=== PATIENT | male | born 1980 | race Hispanic/Latino ===

== ENCOUNTER 2017-08-20 07:50 | Emergency (ER) | payer OTHER ==
--- NOTE | 2017-08-20 08:12 | ED PDOC ---
HPI: General Adult Time Seen by Provider: 08/20/17 07:57 History Per: Patient Onset/Duration Of Symptoms: Days (2) Current Symptoms Are (Timing): Still Present Severity: Moderate Pain Scale Rating Of: 1 Additional Complaint(s): Swelling lower lip since Saturday. No fever. No rash. No SOB. No tightness in throat. Past Medical History - Medical History PMH: Asthma - Family History Family History: States: Unknown Family Hx - Home Medications Home Medications: Ambulatory Orders Medication Instructions Recorded Clindamycin [Cleocin] 300 mg PO TID #30 cap 08/20/17 Valacyclovir HCl [Valtrex] 1 gm PO Q8 #30 tablet 08/20/17 traMADol [Ultram] 50 mg PO Q8 #10 tab 08/20/17 - Allergies Allergies/Adverse Reactions: Allergies Allergy/AdvReac Type Severity Reaction Status Date / Time naproxen [From Naprosyn] AdvReac Verified 08/20/17 08:09 Review of Systems Constitutional: Negative for: Fever ENT: Positive for: Mouth Pain, Mouth Swelling. Negative for: Throat Swelling Respiratory: Negative for: Shortness of Breath, Wheezing Skin: Negative for: Rash Physical Exam - Physical Exam Appears: Positive for: Non-toxic, No Acute Distress Skin: Positive for: Normal Color, Warm. Negative for: Rash ENT: Positive for: Other (Mouth, lower lip swelling and induration. No fluctuance. No drainage. No submandibular swelling or tenderness. No trismus or stridor.). Negative for: Pharyngeal Erythema, Tonsillar Exudate, Tonsillar Swelling Disposition - Clinical Impression Clinical Impression: Infection of lip - Patient ED Disposition Is Patient to be Admitted: No - Disposition Referrals: [facility] [Outside] Mainor Melton MD [Staff Provider] - Disposition: Routine/Home Disposition Time: 08:13 Condition: FAIR Prescriptions: Clindamycin [Cleocin] 300 mg PO TID #30 cap traMADol [Ultram] 50 mg PO Q8 #10 tab Valacyclovir HCl [Valtrex] 1 gm PO Q8 #30 tablet Instructions: Cellulitis (ED)
[2017-08-20 08:17] VITALS: BP 150/92; PULSE 83; RESP 16; TEMP 99; O2SAT 97
== END 2017-08-20 09:05 | disposition home or self-care (01) ==
LOC: H.ER 07:50
DX: L03.211 Cellulitis of face (principal)

== ENCOUNTER 2017-08-22 11:45 | Inpatient (IN) | payer BC, OTHER ==
[2017-08-22] MEDS ORDERED: Piperacillin/Tazobact 3.375 GM in Sodium Chloride 0.9% 100 ML IVPB STA (12:37)
--- NOTE | 2017-08-22 12:48 | ED PDOC ---
HPI: General Adult Time Seen by Provider: 08/22/17 12:11 Chief Complaint (Nursing): Abnormal Skin Integrity History Per: Patient Additional Complaint(s): Pt. states on Saturday he "popped a pimple" on the bottom of his lower lip. On Saturday he developed swelling to the lip and was seen in [facility] ED and prescribed Clindamycin which he started the same day which has not provided any relief. This morning swelling and pain became worse. Denies fever, trauma, hx of DM. Past Medical History Reviewed: Historical Data, Nursing Documentation, Vital Signs Vital Signs: Last Vital Signs Temp 98.7 F 08/22/17 15:54 Pulse 67 08/22/17 15:54 Resp 18 08/22/17 15:54 BP 169/97 H 08/22/17 15:54 Pulse Ox 98 08/22/17 18:59 - Family History Family History: States: No Known Family Hx - Home Medications Home Medications: Ambulatory Orders Medication Instructions Recorded Valacyclovir HCl [Valtrex] 1 gm PO Q4 08/22/17 traMADol [Ultram] 50 mg PO Q6 PRN 08/22/17 - Allergies Allergies/Adverse Reactions: Allergies Allergy/AdvReac Type Severity Reaction Status Date / Time naproxen [From Naprosyn] AdvReac Verified 08/20/17 08:09 Review of Systems ROS Statement: Except As Marked, All Systems Reviewed And Found Negative Physical Exam - Physical Exam Appears: Positive for: Well, Non-toxic, No Acute Distress Skin: Positive for: Normal Color, Warm. Negative for: Rash Eye Exam: Positive for: Normal appearance ENT: Positive for: Other (large swelling noted to entire lower lip greatest on R side with fluctuance ) Neck: Positive for: Normal, Painless ROM Cardiovascular/Chest: Positive for: Regular Rate, Rhythm Respiratory: Positive for: CNT, Normal Breath Sounds Gastrointestinal/Abdominal: Positive for: Normal Exam, Soft. Negative for: Tenderness Extremity: Positive for: Normal ROM Neurologic/Psych: Positive for: Alert, Oriented - Laboratory Results Result Diagrams: 08/22/17 13:54 08/22/17 13:54 - ECG O2 Sat by Pulse Oximetry: 98 - Progress ED Course And Treament: Labs ordered. Zosyn IV, Vancomycin IV ordered. Blood culture x 2 ordered. Pt. evaluated by Dr. Berger in ED. Case d/w Dr. Cristina, plastic surgeon, who see patient in hospital. Arrangements made for [address] Diaz. Disposition - Clinical Impression Clinical Impression: Abscess of lip - Patient ED Disposition Is Patient to be Admitted: Yes - Disposition Disposition Time: 12:44 Condition: STABLE
[2017-08-22] MEDS ORDERED: Piperacillin/Tazobact 3.375 gm Inj IVPB ONE (12:59)
[2017-08-22 13:27] LABS: VENOUS BLOOD GAS BASE EXCESS 5.9 mmol/L (0.0-2.0); VENOUS BLOOD GAS PCO2 54 mmHg (40-60); VENOUS BLOOD GAS PO2 19 mm/Hg (30-55); VENOUS BLOOD PH 7.39 (7.32-7.43)
[2017-08-22 14:10] LABS: BASO # 0.1 K/uL (0.0-0.2); BASO % 0.6 % (0.0-2.0); EOS # 0.2 K/uL (0.0-0.7); EOS % 1.3 % (0.0-4.0); HEMOGLOBIN 14.5 g/dL (12.0-18.0); LYMPH # 3.2 K/uL (1.0-4.3); LYMPH % 18.8 % (20.0-40.0); MEAN CELL VOLUME 80.8 fl (80.0-94.0); MEAN CORPUSCULAR HEMOGLOBIN 26.5 pg (27.0-31.0); MEAN CORPUSCULAR HGB CONC 32.9 g/dL (33.0-37.0); MEAN PLATELET VOLUME 9.6 fl (7.2-11.7); MONO # 1.1 K/uL (0.0-0.8); MONO % 6.5 % (0.0-10.0); NEUT # 12.3 K/uL (1.8-7.0); NEUT % 72.8 % (50.0-75.0); RBC 5.47 Mil/uL (4.40-5.90); RED CELL DISTRIBUTION WIDTH 13.8 % (11.5-14.5); WHITE BLOOD COUNT 16.9 K/uL (4.8-10.8)
[2017-08-22 14:18] LABS: ALBUMIN 4.4 g/dL (3.5-5.0); ALT/SGPT 254 U/L (21-72); AST/SGOT 147 U/L (17-59); BLOOD UREA NITROGEN 6 mg/dl (9-20); CALCIUM 9.1 mg/dL (8.4-10.2); GFR AFRICAN-AMERICAN > 60; GFR NON-AFRICAN AMERICAN > 60
[2017-08-22 14:22] LABS: ALB/GLOB RATIO 1.1 (1.0-2.1)
[2017-08-22] MEDS ORDERED: Oxycodone/Acetaminophen 5/325 mg Tab PO PRN (16:50)
[2017-08-22] MEDS ORDERED: VALACYCLOVIR HCL 1 GM PO SCH (21:00)
[2017-08-22] MEDS: Piperacillin/Tazobact 3.375 GM in Sodium Chloride 0.9% 100 ML IVPB SCH (21:07)
[2017-08-22] MEDS: Vitamins A & D Oint UD Foilpak TOP PRN (21:12)
[2017-08-23] MEDS: Piperacillin/Tazobact 3.375 GM in Sodium Chloride 0.9% 100 ML IVPB SCH ×4 (04:11→22:50)
[2017-08-23 06:34] LABS: HEMOGLOBIN 14.4 g/dL (12.0-18.0); MEAN CELL VOLUME 81.2 fl (80.0-94.0); MEAN CORPUSCULAR HEMOGLOBIN 26.5 pg (27.0-31.0); MEAN CORPUSCULAR HGB CONC 32.6 g/dL (33.0-37.0); RBC 5.44 Mil/uL (4.40-5.90); RED CELL DISTRIBUTION WIDTH 13.8 % (11.5-14.5); WHITE BLOOD COUNT 14.3 K/uL (4.8-10.8)
[2017-08-23 07:23] LABS: ALB/GLOB RATIO 1.1 (1.0-2.1); ALBUMIN 4.2 g/dL (3.5-5.0); ALT/SGPT 238 U/L (21-72); AST/SGOT 119 U/L (17-59); BLOOD UREA NITROGEN 7 mg/dl (9-20); CALCIUM 9.1 mg/dL (8.4-10.2); GFR AFRICAN-AMERICAN > 60; GFR NON-AFRICAN AMERICAN > 60
--- NOTE | 2017-08-23 08:28 | CP.PCM.HP ---
<Kami Gannon - Last Filed: 08/23/17 14:40> History of Present Illness - History of Present Illness History of Present Illness: 37 yo ,m, no significant PMhx presents to ED with complaint of inferior lip abscess and swelling. Patient reports that 6 days ago he pressed a pimple over his inferior lip and 3 days after it got swollen and painful. patient came to ED and was evaluated and prescribed clindamycin but 2 days after treatment it got worse and more swollen associated with chills, subjective fever. He denies headache, dizziness, hx/o DM, hx/o skin infections in the past, trauma. Patient seen and examined bedside with Dr pedraza. Patient s/o I & D yesterday by Plastic surgery. Patient tolerating liquid diet and reports minimal pain alleviated with pain medications. PMhx: None Allergies: Naproxen. "cough" reaction Meds: None PSurgHx: none PShx: Denies ETOH,rect drugs, cig Present on Admission - Present on Admission Any Indicators Present on Admission: No History of DVT/PE: No History of Uncontrolled Diabetes: No Urinary Catheter: No Decubitus Ulcer Present: No Review of Systems - Constitutional Constitutional: As Per HPI - EENT Nose/Mouth/Throat: Lip Swelling, Mouth Lesions, Mouth Pain. absent: Facial Pain , Neck Pain - Gastrointestinal Gastrointestinal: As Per HPI - Genitourinary Genitourinary: As Per HPI - Musculoskeletal Musculoskeletal: As Per HPI Past Patient History - Past Social History Smoking Status: Never Smoked - CARDIAC Hx Cardiac Disorders: No - PULMONARY Hx Respiratory Disorders: No - NEUROLOGICAL Hx Neurological Disorder: No - HEENT Hx HEENT Problems: No - RENAL Hx Chronic Kidney Disease: No - ENDOCRINE/METABOLIC Hx Endocrine Disorders: No - HEMATOLOGICAL/ONCOLOGICAL Hx Blood Disorders: No - INTEGUMENTARY Hx Dermatological Problems: No - MUSCULOSKELETAL/RHEUMATOLOGICAL Hx Musculoskeletal Disorders: No Hx Falls: No - GENITOURINARY/GYNECOLOGICAL Hx Genitourinary Disorders: No - PSYCHIATRIC Hx Psychophysiologic Disorder: No Hx Substance Use: No - SURGICAL HISTORY Hx Surgeries: No - ANESTHESIA Hx Anesthesia: No Meds Allergies/Adverse Reactions: Allergies Allergy/AdvReac Type Severity Reaction Status Date / Time naproxen [From Naprosyn] AdvReac Verified 08/20/17 08:09 Physical Exam - Constitutional Appears: No Acute Distress - Head Exam Head Exam: ATRAUMATIC, NORMOCEPHALIC - Eye Exam Eye Exam: Normal appearance - ENT Exam ENT Exam: Mucous Membranes Moist Additional comments: inferior lip swollen, erythema, s/p I & D yesterday, horizontal scab linear 4 cm size, no active bleeding, no discharge. - Expanded ENT Exam Expanded Mouth exam: absent: drooling, muffled voice, tongue elevation, tongue hypertrophy, tongue normal, trismus Throat exam: Normal Inspection. absent: Tonsillar Erythema, Tonsillar Exudate - Neck Exam Neck exam: Positive for: Normal Inspection - Respiratory Exam Respiratory Exam: Clear to Auscultation Bilateral. absent: Rhonchi, Wheezes - Cardiovascular Exam Cardiovascular Exam: REGULAR RHYTHM, +S1, +S2 - GI/Abdominal Exam GI & Abdominal Exam: Normal Bowel Sounds, Soft. absent: Guarding, Rebound, Tenderness - Extremities Exam Extremities exam: Positive for: normal inspection. Negative for: pedal edema, tenderness - Neurological Exam Neurological exam: Alert, Oriented x3 - Psychiatric Exam Psychiatric exam: Normal Affect, Normal Mood - Skin Skin Exam: Erythema Additional comments: inferior lip Results - Vital Signs Recent Vital Signs: Last Vital Signs Temp 98.2 F 08/23/17 07:37 Pulse 81 08/23/17 07:37 Resp 20 08/23/17 07:37 BP 137/82 08/23/17 07:37 Pulse Ox 97 08/23/17 07:37 - Labs Result Diagrams: 08/23/17 06:10 08/23/17 06:10 Labs: Laboratory Results - last 24 hr 08/22/17 08/22/17 08/22/17 12:37 13:54 13:54 WBC 16.9 H RBC 5.47 Hgb 14.5 Hct 44.1 MCV 80.8 MCH 26.5 L MCHC 32.9 L RDW 13.8 Plt Count 243 MPV 9.6 Neut % (Auto) 72.8 Lymph % (Auto) 18.8 L Garland % (Auto) 6.5 Eos % (Auto) 1.3 Baso % (Auto) 0.6 Neut # 12.3 H Lymph # 3.2 Garland # 1.1 H Eos # 0.2 Baso # 0.1 pO2 19 L VBG pH 7.39 VBG pCO2 54 VBG HCO3 27.6 VBG Total CO2 34.4 H VBG O2 Sat (Calc) 37.4 L VBG Base Excess 5.9 H VBG Potassium 4.4 A-a O2 Difference 63.0 Sodium 136.0 139 Chloride 102.0 98 Glucose 103 Lactate 1.1 FiO2 21.0 Crit Value Called To Eric campoverde Crit Value Called By 15 Crit Value Read Back Y Blood Gas Notified Time 1327 Potassium 4.3 Carbon Dioxide 32 H Anion Gap 13 BUN 6 L Creatinine 0.7 L Est GFR ( Amer) > 60 Est GFR (Non-Af Amer) > 60 Random Glucose 98 Calcium 9.1 Total Bilirubin 0.8 AST 147 H ALT 254 H Alkaline Phosphatase 183 H Total Protein 8.4 H Albumin 4.4 Globulin 4.0 H Albumin/Globulin Ratio 1.1 Venous Blood Potassium 4.4 08/23/17 08/23/17 06:10 06:10 WBC 14.3 H RBC 5.44 Hgb 14.4 Hct 44.2 MCV 81.2 MCH 26.5 L MCHC 32.6 L RDW 13.8 Plt Count 238 MPV Neut % (Auto) Lymph % (Auto) Garland % (Auto) Eos % (Auto) Baso % (Auto) Neut # Lymph # Garland # Eos # Baso # pO2 VBG pH VBG pCO2 VBG HCO3 VBG Total CO2 VBG O2 Sat (Calc) VBG Base Excess VBG Potassium A-a O2 Difference Sodium 137 Chloride 98 Glucose Lactate FiO2 Crit Value Called To Crit Value Called By Crit Value Read Back Blood Gas Notified Time Potassium 4.9 Carbon Dioxide 31 H Anion Gap 13 BUN 7 L Creatinine 0.8 Est GFR ( Amer) > 60 Est GFR (Non-Af Amer) > 60 Random Glucose 108 Calcium 9.1 Total Bilirubin 1.1 AST 119 H ALT 238 H Alkaline Phosphatase 162 H Total Protein 8.2 Albumin 4.2 Globulin 4.0 H Albumin/Globulin Ratio 1.1 Venous Blood Potassium Assessment & Plan - Assessment and Plan (Free Text) Plan: Assessment/Plan 1) Abscess of lip -s/p I & D yesterday -vanco/zosyn -Plastic surgery consult.Dr. Cristina, plastic surgeon consult appreciated -ID consult suggested. 2) Transaminitis -Abd Us -Lipid profile, Hgba1c -Hepatic panel -HIV test 3) DVT Prophylaxis -lovenox 40 mg sc <Babatunde Pedraza K - Last Filed: 09/03/17 12:23> Results - Vital Signs Recent Vital Signs: Last Vital Signs Temp 97.5 F L 08/30/17 08:25 Pulse 77 08/30/17 08:25 Resp 18 08/30/17 08:25 BP 129/81 08/30/17 08:25 Pulse Ox 96 08/30/17 08:25 - Labs Result Diagrams: 08/30/17 05:10 08/30/17 11:45 Assessment & Plan - Assessment and Plan (Free Text) Assessment: Patient was personally seen and examined by me in rounds with residents. Available labs and diagnostic data reviewed. Case, Patient's condition and management plan discussed with residents in rounds. Agree with resident's progress note. Plan: As ordered.
[2017-08-23] MEDS: Vitamins A & D Oint UD Foilpak TOP PRN (09:16)
--- NOTE | 2017-08-23 13:10 | CP.PCM.CON ---
History of Present Illness - History of Present Illness History of Present Illness: "popped a pimple" on the bottom of his lower lip. On Saturday he developed swelling to the lip and was seen in [facility] ED and prescribed Clindamycin which he started the same day which has not provided any relief. This morning swelling and pain became worse. Denies fever, trauma, hx of DM. swelling worse despite iv antibiotics - Home Medications Home Medications: Ambulatory Orders Medication Instructions Recorded Valacyclovir HCl [Valtrex] 1 gm PO Q4 08/22/17 traMADol [Ultram] 50 mg PO Q6 PRN 08/22/17 Review of Systems - Constitutional Constitutional: Anorexia, Chills, Fever, Malaise - EENT Eyes: absent: As Per HPI, Blind Spots, Blurred Vision, Change in Vision, Decreased Night Vision, Diplopia, Discharge, Dry Eye, Exophthalmos, Floaters, Irritation, Itchy Eyes, Loss of Peripheral Vision, Pain, Photophobia, Requires Corrective Lenses, Sees Flashes, Spots in Vision, Tunnel Vision, Other Visual Disturbances, Loss of Vision, Other Ears: absent: As Per HPI, Decreased Hearing, Ear Discharge, Ear Pain, Tinnitus, Abnormal Hearing, Disequilibrium, Dizziness, Other Nose/Mouth/Throat: As Per HPI - Cardiovascular Cardiovascular: absent: As Per HPI, Acrocyanosis, Chest Pain, Chest Pain at Rest , Chest Pain with Activity, Claudication, Diaphoresis, Dyspnea, Dyspnea on Exertion, Edema, Irregular Heart Rhythm, Pain Radiating to Arm/Neck/Jaw, Leg Edema, Leg Ulcers, Lightheadedness, Orthopnea, Palpitations, Paroxysmal Nocturnal Dyspnea, Pedal Edema, Radiating Pain, Rapid Heart Rate, Slow Heart Rate, Syncope, Other - Respiratory Respiratory: absent: As Per HPI, Cough, Dyspnea, Hemoptysis, Dyspnea on Exertion , Wheezing, Snoring, Stridor, Pain on Inspiration, Chest Congestion, Excessive Mucous Production, Change in Mucous Color, Pain with Coughing, Other - Gastrointestinal Gastrointestinal: absent: As Per HPI, Abdominal Pain, Belching, Bloating, Change in Bowel Habits, Change in Stool Character, Coffee Ground Emesis, Constipation, Cramping, Diarrhea, Dyspepsia, Dysphagia, Early Satiety, Excessive Flatus, Fecal Incontinence, Heartburn, Hematemesis, Hematochezia, Loose Stools, Melena, Nausea, Odynophagia, Temesmus, Vomiting, Other - Genitourinary Genitourinary: absent: As Per HPI, Change in Urinary Stream, Difficulty Urinating, Dysuria, Flank Pain, Hematuria, Pyuria, Nocturia, Urinary Incontinence, Urinary Frequency, Urinary Hesitance, Urinary Urgency, Voiding Freq/Small Amts, Freq UTI, Hx Renal/Bladder Calculi, Hx /Renal Surgery, Bladder Distension, Other - Musculoskeletal Musculoskeletal: absent: As Per HPI, Abnormal Gait, Arthralgias, Atrophy, Back Pain, Deformity, Joint Swelling, Limited Range of Motion, Loss of Height, Muscle Cramps, Muscle Weakness, Myalgias, Neck Pain, Numbness, Radiating Pain into Limb, Stiffness, Tingling, Other - Integumentary Integumentary: absent: As Per HPI, Acne, Alopecia, Bleeding Lesions, Change in Hair, Change in Nails, Change in Pigmentation, Changing Lesions, Dry Skin, Erythema, Furuncle, Hirsutism, Lesions, New Lesions, Non-Healing Lesions, Photosensitivity, Pruritus, Rash, Skin Pain, Skin Ulcer, Sores, Striae, Swelling , Unusual Bruising, Wounds, Jaundice, Other - Neurological Neurological: absent: As Per HPI, Abnormal Gait, Abnormal Hearing, Abnormal Movements, Abnormal Speech, Behavioral Changes, Burning Sensations, Confusion, Convulsions, Disequilibrium, Dizziness, Numbness, Focal Weakness, Frequent Falls , Headaches, Lack of Coordination, Loss of Vision, Memory Loss, Paresthesias, Radicular Pain, Restless Legs, Sensory Deficit, Syncope, Tingling, Tremor, Vertigo, Weakness, Other Visual Disturbances, Other - Psychiatric Psychiatric: absent: As Per HPI, Abnormal Sleep Pattern, Anhedonia, Anxiety, Auditory Hallucinations, Behavioral Changes, Change in Appetite, Change in Libido, Confusion, Depression, Difficulty Concentrating, Hallucinations, Homicidal Ideation, Hopelessness, Irritability, Memory Loss, Mood Swings, Panic Attacks, Paranoia, Suicidal Ideation, Visual Hallucinations, Tactile Hallucinations, Other - Endocrine Endocrine: absent: As Per HPI, Change in Body Appearance, Change in Libido, Cold Intolorance, Deepening of Voice, Excessive Sweating, Fatigue, Flushing, Heat Intolorance, Increase in Ring/Shoe/Hat Size, Palpitations, Polydipsia, Polyphagia, Polyuria, Other - Hematologic/Lymphatic Hematologic: absent: As Per HPI, Easy Bleeding, Easy Bruising, Lymphadenopathy, Other Past Patient History - Past Social History Smoking Status: Never Smoked - CARDIAC Hx Cardiac Disorders: No - PULMONARY Hx Respiratory Disorders: No - NEUROLOGICAL Hx Neurological Disorder: No - HEENT Hx HEENT Problems: No - RENAL Hx Chronic Kidney Disease: No - ENDOCRINE/METABOLIC Hx Endocrine Disorders: No - HEMATOLOGICAL/ONCOLOGICAL Hx Blood Disorders: No - INTEGUMENTARY Hx Dermatological Problems: No - MUSCULOSKELETAL/RHEUMATOLOGICAL Hx Musculoskeletal Disorders: No Hx Falls: No - GENITOURINARY/GYNECOLOGICAL Hx Genitourinary Disorders: No - PSYCHIATRIC Hx Psychophysiologic Disorder: No Hx Substance Use: No - SURGICAL HISTORY Hx Surgeries: No - ANESTHESIA Hx Anesthesia: No Meds Allergies/Adverse Reactions: Allergies Allergy/AdvReac Type Severity Reaction Status Date / Time naproxen [From Naprosyn] AdvReac Verified 08/20/17 08:09 - Medications Medications: Current Medications Acetaminophen (Tylenol 325mg Tab) 650 mg PO Q6 PRN PRN Reason: Pain, moderate (4-7) Acetaminophen (Tylenol 325mg Tab) 650 mg PO Q6 PRN PRN Reason: Headache Acyclovir (Zovirax) 800 mg PO 5XD MELODIE PRN Reason: Protocol Last Admin: 08/23/17 13:02 Dose: 800 mg Piperacillin Sod/Tazobactam (Sod 3.375 gm/ Sodium Chloride) 100 mls @ 100 mls/ hr IVPB Q6 MELODIE PRN Reason: Protocol Last Admin: 08/23/17 09:20 Dose: 100 mls/hr Vancomycin HCl 1,500 mg/ (Sodium Chloride) 500 mls @ 250 mls/hr IVPB Q12 MELODIE PRN Reason: Protocol Last Admin: 08/23/17 09:50 Dose: 250 mls/hr Tramadol HCl (Ultram) 50 mg PO Q6 PRN PRN Reason: Pain, severe (8-10) Last Admin: 08/23/17 03:14 Dose: 50 mg Vitamin A (Vitamin A & D Oint Ud Foilpak) 1 ea TOP PRN PRN PRN Reason: Dry mouth Last Admin: 08/23/17 09:16 Dose: 1 ea Physical Exam - Constitutional Appears: Non-toxic, Chronically Ill - Head Exam Head Exam: NORMOCEPHALIC - Eye Exam Eye Exam: PERRL. absent: Scleral icterus - ENT Exam ENT Exam: Mucous Membranes Dry, Normal External Ear Exam. absent: Mucous Membranes Moist, Normal Exam, Normal Oropharynx Additional comments: massive swelling lower lip with wound from I and D - min drainage - Neck Exam Neck exam: Negative for: Lymphadenopathy - Respiratory Exam Respiratory Exam: Decreased Breath Sounds - Cardiovascular Exam Cardiovascular Exam: REGULAR RHYTHM - GI/Abdominal Exam GI & Abdominal Exam: Diminished Bowel Sounds - Rectal Exam Rectal Exam: Deferred - Exam Exam: NORMAL INSPECTION - Extremities Exam Extremities exam: Negative for: pedal edema - Back Exam Back exam: absent: CVA tenderness (L), CVA tenderness (R) - Neurological Exam Neurological exam: Alert, CN II-XII Intact, Oriented x3, Reflexes Normal - Psychiatric Exam Psychiatric exam: Normal Mood - Skin Skin Exam: Dry Results - Vital Signs Recent Vital Signs: Last Vital Signs Temp 98.2 F 08/23/17 07:37 Pulse 81 08/23/17 07:37 Resp 20 08/23/17 07:37 BP 137/82 08/23/17 07:37 Pulse Ox 97 08/23/17 07:37 - Labs Result Diagrams: 08/23/17 06:10 08/23/17 06:10 Labs: Laboratory Results - last 24 hr 08/22/17 08/22/17 08/22/17 12:37 13:54 13:54 WBC 16.9 H RBC 5.47 Hgb 14.5 Hct 44.1 MCV 80.8 MCH 26.5 L MCHC 32.9 L RDW 13.8 Plt Count 243 MPV 9.6 Neut % (Auto) 72.8 Lymph % (Auto) 18.8 L Dickey % (Auto) 6.5 Eos % (Auto) 1.3 Baso % (Auto) 0.6 Neut # 12.3 H Lymph # 3.2 Dickey # 1.1 H Eos # 0.2 Baso # 0.1 pO2 19 L VBG pH 7.39 VBG pCO2 54 VBG HCO3 27.6 VBG Total CO2 34.4 H VBG O2 Sat (Calc) 37.4 L VBG Base Excess 5.9 H VBG Potassium 4.4 A-a O2 Difference 63.0 Sodium 136.0 139 Chloride 102.0 98 Glucose 103 Lactate 1.1 FiO2 21.0 Crit Value Called To Eric campoverde Crit Value Called By 15 Crit Value Read Back Y Blood Gas Notified Time 1327 Potassium 4.3 Carbon Dioxide 32 H Anion Gap 13 BUN 6 L Creatinine 0.7 L Est GFR ( Amer) > 60 Est GFR (Non-Af Amer) > 60 Random Glucose 98 Calcium 9.1 Total Bilirubin 0.8 AST 147 H ALT 254 H Alkaline Phosphatase 183 H Total Protein 8.4 H Albumin 4.4 Globulin 4.0 H Albumin/Globulin Ratio 1.1 Venous Blood Potassium 4.4 08/23/17 08/23/17 06:10 06:10 WBC 14.3 H RBC 5.44 Hgb 14.4 Hct 44.2 MCV 81.2 MCH 26.5 L MCHC 32.6 L RDW 13.8 Plt Count 238 MPV Neut % (Auto) Lymph % (Auto) Dickey % (Auto) Eos % (Auto) Baso % (Auto) Neut # Lymph # Dickey # Eos # Baso # pO2 VBG pH VBG pCO2 VBG HCO3 VBG Total CO2 VBG O2 Sat (Calc) VBG Base Excess VBG Potassium A-a O2 Difference Sodium 137 Chloride 98 Glucose Lactate FiO2 Crit Value Called To Crit Value Called By Crit Value Read Back Blood Gas Notified Time Potassium 4.9 Carbon Dioxide 31 H Anion Gap 13 BUN 7 L Creatinine 0.8 Est GFR ( Amer) > 60 Est GFR (Non-Af Amer) > 60 Random Glucose 108 Calcium 9.1 Total Bilirubin 1.1 AST 119 H ALT 238 H Alkaline Phosphatase 162 H Total Protein 8.2 Albumin 4.2 Globulin 4.0 H Albumin/Globulin Ratio 1.1 Venous Blood Potassium Assessment & Plan (1) Abscess of lip Status: Acute (2) Infection of lip Status: Acute - Assessment and Plan (Free Text) Assessment: elevated LFT's etio unclear will screen cont iv antibiotics await cultures
[2017-08-23 17:07] LABS: INR 1.3 (0.9-1.2); PARTIAL THROMBOPLASTIN TIME 35.2 Seconds (25.6-37.1); PROTHROMBIN TIME 14.1 Seconds (9.8-13.1)
[2017-08-23] MEDS: Enoxaparin 40 mg Syringe SC SCH (18:32)
--- NOTE | 2017-08-23 18:43 | US ---
HISTORY: Transaminitis. COMPARISON: No prior TECHNIQUE: Sonographic evaluation of the abdomen. . Note that the examination is limited due to body habitus and bowel gas FINDINGS: LIVER: Liver exhibits normal size measuring nearly 17 cm in CC dimension. Liver demonstrates smooth contour and normal echogenicity of the liver. . No mass. No intrahepatic bile duct dilatation. Portal vein demonstrates hepatopetal flow. No ascites. GALLBLADDER: Cholelithiasis COMMON BILE DUCT: Measures 3 mm. No stones. No dilatation. PANCREAS: Pancreas is poorly delineated. RIGHT KIDNEY: Right kidney measures approximately 11.1 x 4.9 x 4.0cm. Normal echogenicity. No calculus, mass, or hydronephrosis. LEFT KIDNEY: Left kidney measures approximately 11.2 x 5.9 x 4.4 Normal echogenicity. No calculus, mass, or hydronephrosis. SPLEEN: Normal in size and contour. No mass. AORTA: No aneurysmal dilatation. IVC: Unremarkable. OTHER FINDINGS: None. IMPRESSION: Cholelithiasis.
[2017-08-23 21:48] LABS: HEPATITIS B SURFACE AG NEGATIVE (NEGATIVE)
[2017-08-23 21:53] LABS: HEPATITIS A IGM NEGATIVE (NEGATIVE); HEPATITIS B CORE AB Negative (NEGATIVE)
[2017-08-23 22:05] LABS: HEPATITIS C ANTIBODY Negative (NEGATIVE)
[2017-08-24] MEDS: Piperacillin/Tazobact 3.375 GM in Sodium Chloride 0.9% 100 ML IVPB SCH ×3 (05:16→17:06)
[2017-08-24 07:08] LABS: BASO # 0.1 K/uL (0.0-0.2); BASO % 0.4 % (0.0-2.0); EOS # 0.3 K/uL (0.0-0.7); HEMOGLOBIN 13.9 g/dL (12.0-18.0); LYMPH # 2.3 K/uL (1.0-4.3); LYMPH % 17.4 % (20.0-40.0); MEAN CELL VOLUME 80.8 fl (80.0-94.0); MEAN CORPUSCULAR HEMOGLOBIN 26.7 pg (27.0-31.0); MEAN PLATELET VOLUME 9.3 fl (7.2-11.7); MONO # 1.1 K/uL (0.0-0.8); MONO % 8.6 % (0.0-10.0); NEUT # 9.4 K/uL (1.8-7.0); NEUT % 71.6 % (50.0-75.0); NRBC % 0.1 % (0.0-0.0); RBC 5.21 Mil/uL (4.40-5.90); RED CELL DISTRIBUTION WIDTH 14.1 % (11.5-14.5); WHITE BLOOD COUNT 13.1 K/uL (4.8-10.8)
[2017-08-24 07:21] LABS: LDL CHOLESTEROL 99 mg/dL (0-129)
[2017-08-24 07:24] LABS: ALBUMIN 3.9 g/dL (3.5-5.0); ALT/SGPT 163 U/L (21-72); AST/SGOT 58 U/L (17-59); BLOOD UREA NITROGEN 9 mg/dl (9-20); CALCIUM 9.3 mg/dL (8.4-10.2); GFR AFRICAN-AMERICAN > 60; GFR NON-AFRICAN AMERICAN > 60; HDL CHOLESTEROL 31 MG/DL (30-70)
[2017-08-24] MEDS: Enoxaparin 40 mg Syringe SC SCH ×2 (08:34→08:39)
--- NOTE | 2017-08-24 11:49 | PN ---
DATE: 08/24/2017 SUBJECTIVE: Patient is seen and examined. Interim events noted. Consults noted and appreciated. Infectious Disease followup and intervention noted and appreciated. Patient remains in regular floor. Patient feels a little better. Still has discomfort on the lips and difficulty in eating, but he is able to tolerate liquid diet, also feels discomfort of plaquing, but overall pain is improving. Also patient feels that swelling is also going down. PHYSICAL EXAMINATION: GENERAL: Patient is in no acute distress. VITAL SIGNS: Stable. HEART: S1 and S2, normal and regular. LUNGS: Good bilateral air exchange. ABDOMEN: Soft, nontender. EXTREMITIES: No edema. No calf swelling. No tenderness. No acute ischemia. CENTRAL NERVOUS SYSTEM: Essentially unchanged. FACIAL EXAM: Lower lip still stays significantly swollen with plaquing on that side, does look a little less swollen and seems to be improving. DIAGNOSTIC DATA: Available diagnostic data reviewed. WBC count still remains elevated at 13. ASSESSMENT AND PLAN: Patient does have some diarrhea, which could be antibiotic-associated diarrhea. Plan as ordered. Case and plan discussed with patient. Babatunde Diaz MD
[2017-08-25] MEDS: Piperacillin/Tazobact 3.375 GM in Sodium Chloride 0.9% 100 ML IVPB SCH ×4 (00:46→17:04)
[2017-08-25 07:25] LABS: HEMOGLOBIN 13.7 g/dL (12.0-18.0); MEAN CELL VOLUME 81.1 fl (80.0-94.0); MEAN CORPUSCULAR HEMOGLOBIN 26.8 pg (27.0-31.0); MEAN CORPUSCULAR HGB CONC 33.1 g/dL (33.0-37.0); RBC 5.09 Mil/uL (4.40-5.90); RED CELL DISTRIBUTION WIDTH 13.8 % (11.5-14.5); WHITE BLOOD COUNT 15.3 K/uL (4.8-10.8)
[2017-08-25 07:38] LABS: ALBUMIN 3.8 g/dL (3.5-5.0); ALT/SGPT 119 U/L (21-72); AST/SGOT 38 U/L (17-59); BLOOD UREA NITROGEN 12 mg/dl (9-20); CALCIUM 9.3 mg/dL (8.4-10.2); GFR AFRICAN-AMERICAN > 60; GFR NON-AFRICAN AMERICAN > 60
[2017-08-25] MEDS: Enoxaparin 40 mg Syringe SC SCH ×2 (09:38→09:45)
--- NOTE | 2017-08-25 09:47 | PN ---
DATE: 08/25/2017 SUBJECTIVE: The patient is seen and examined. Interim events noted. The patient remains in regular medical floor with IV antibiotic. Feels a little better. Pain in the lip is improved. Swelling also seems to be improved. No new complaint of chest pain or shortness of breath or any side effect from medication. PHYSICAL EXAMINATION: GENERAL: The patient is in no acute distress. VITAL SIGNS: Stable. HEART: S1 and S2, normal and regular. LUNGS: Good bilateral air exchange. ABDOMEN: Soft, nontender. EXTREMITIES: No edema. No calf swelling. No tenderness. No acute ischemia. CENTRAL NERVOUS SYSTEM: Essentially unchanged. FACIAL EXAM: The lower lip is still significantly swollen, but does look a little less than yesterday. DIAGNOSTIC DATA: Available diagnostic data reviewed. WBC count is 15. Culture is still pending. ASSESSMENT AND PLAN: Overall, the patient is clinically seems to be improving. Plan as ordered. Babatunde Diaz MD
--- NOTE | 2017-08-25 12:42 | CP.PCM.PN ---
Subjective - Date & Time of Evaluation Date of Evaluation: 08/25/17 Time of Evaluation: 09:00 - Subjective Subjective: swelling and pain less no fever no drainage lips have scabbed over Objective - Vital Signs/Intake and Output Vital Signs (last 24 hours): Temp Pulse Resp BP Pulse Ox 98.5 F 71 18 130/79 96 08/25/17 08:22 08/25/17 08:22 08/25/17 08:22 08/25/17 08:22 08/25/17 08:22 - Medications Medications: Current Medications Acetaminophen (Tylenol 325mg Tab) 650 mg PO Q6 PRN PRN Reason: Pain, moderate (4-7) Acetaminophen (Tylenol 325mg Tab) 650 mg PO Q6 PRN PRN Reason: Headache Acyclovir (Zovirax) 800 mg PO 5XD MELODIE PRN Reason: Protocol Last Admin: 08/25/17 12:23 Dose: 800 mg Enoxaparin Sodium (Lovenox) 40 mg SC DAILY MELODIE PRN Reason: Protocol Last Admin: 08/25/17 09:45 Dose: Not Given Vancomycin HCl 1,500 mg/ (Sodium Chloride) 500 mls @ 250 mls/hr IVPB Q12 MELODIE PRN Reason: Protocol Last Admin: 08/25/17 09:37 Dose: 250 mls/hr Piperacillin Sod/Tazobactam (Sod 3.375 gm/ Sodium Chloride) 100 mls @ 100 mls/ hr IVPB 0000,0600,1200,1800 MELODIE PRN Reason: Protocol Last Admin: 08/25/17 11:51 Dose: 100 mls/hr Lactobacillus Acidophilus (Bacid Acidophilus) 1 cap PO BID MELODIE Mupirocin (Bactroban Ointment) 1 applic TOP BID MELODEI Last Admin: 08/25/17 12:21 Dose: 1 unit Tramadol HCl (Ultram) 50 mg PO Q6 PRN PRN Reason: Pain, severe (8-10) Last Admin: 08/23/17 03:14 Dose: 50 mg Vitamin A (Vitamin A & D Oint Ud Foilpak) 1 ea TOP PRN PRN PRN Reason: Dry mouth Last Admin: 08/23/17 09:16 Dose: 1 ea - Labs Labs: 08/25/17 05:30 08/25/17 05:30 PT 14.1 Seconds (9.8-13.1) H 12/29/17 16:41 INR 1.3 (0.9-1.2) H 08/23/17 16:41 APTT 35.2 Seconds (25.6-37.1) 08/23/17 16:41 - Constitutional Appears: Non-toxic, Chronically Ill - Head Exam Head Exam: NORMOCEPHALIC - Eye Exam Eye Exam: PERRL - ENT Exam ENT Exam: Mucous Membranes Dry - Neck Exam Neck Exam: absent: Lymphadenopathy - Respiratory Exam Respiratory Exam: Decreased Breath Sounds, Clear to Ausculation Bilateral - Cardiovascular Exam Cardiovascular Exam: REGULAR RHYTHM, +S1, +S2 - GI/Abdominal Exam GI & Abdominal Exam: Distended, Soft. absent: Tenderness - Rectal Exam Rectal Exam: Deferred - Exam Exam: NORMAL INSPECTION - Extremities Exam Extremities Exam: absent: Pedal Edema - Back Exam Back Exam: absent: CVA tenderness (L), CVA tenderness (R) - Neurological Exam Neurological Exam: Alert, Awake, Oriented x3 - Psychiatric Exam Psychiatric exam: Normal Mood - Skin Skin Exam: Dry Assessment and Plan (1) Abscess of lip Status: Acute (2) Infection of lip Status: Acute
[2017-08-25 14:47] LABS: BASO % 0.4 % (0.0-2.0); EOS # 0.2 K/uL (0.0-0.7); EOS % 1.9 % (0.0-4.0); HEMOGLOBIN 13.1 g/dL (12.0-18.0); LYMPH % 16.8 % (20.0-40.0); MEAN CELL VOLUME 81.1 fl (80.0-94.0); MEAN CORPUSCULAR HEMOGLOBIN 26.5 pg (27.0-31.0); MEAN CORPUSCULAR HGB CONC 32.7 g/dL (33.0-37.0); MEAN PLATELET VOLUME 8.6 fl (7.2-11.7); MONO # 1.1 K/uL (0.0-0.8); MONO % 9.4 % (0.0-10.0); NEUT # 8.7 K/uL (1.8-7.0); NEUT % 71.5 % (50.0-75.0); NRBC % 0.1 % (0.0-0.0); RBC 4.94 Mil/uL (4.40-5.90); RED CELL DISTRIBUTION WIDTH 13.6 % (11.5-14.5); WHITE BLOOD COUNT 12.1 K/uL (4.8-10.8)
[2017-08-25] MEDS: Lactobacillus Acidophilus 500 MU Cap PO SCH (17:01)
[2017-08-26] MEDS: Piperacillin/Tazobact 3.375 GM in Sodium Chloride 0.9% 100 ML IVPB SCH ×4 (00:17→17:39)
[2017-08-26 07:18] LABS: CALCIUM 9.3 mg/dL (8.4-10.2)
[2017-08-26] MEDS: Enoxaparin 40 mg Syringe SC SCH (08:57)
[2017-08-26] MEDS: Lactobacillus Acidophilus 500 MU Cap PO SCH ×2 (08:57→17:39)
[2017-08-26] MEDS: Vitamins A & D Oint UD Foilpak TOP PRN (08:58)
--- NOTE | 2017-08-26 13:48 | PN ---
DATE: 08/26/2017 SUBJECTIVE: Patient was seen and examined. Interim events noted. Consults noted and appreciated. Infectious Disease followup and intervention noted and appreciated. The patient remains in regular medical floor. Patient is better. Lip swelling improved. No chest pain or shortness of breath, although patient does have increased bowel movement. PHYSICAL EXAMINATION: GENERAL: Patient is in no acute distress. VITAL SIGNS: Stable. HEART: S1 and S2, normal and regular. LUNGS: Good bilateral air entry. ABDOMEN: Soft, nontender. No organomegaly. No fluid. No sign of acute abdomen. No guarding. No rigidity. No rebound. Bowel sounds are present and normal. EXTREMITIES: No edema. No calf swelling. No tenderness. No acute ischemia. CENTRAL NERVOUS SYSTEM: Essentially unchanged. FACIAL EXAM: Patient's lip is much more improved, much less swollen, had crusting. DIAGNOSTIC DATA: Available diagnostic data reviewed. WBC is down to 12, hemoglobin 13, hematocrit 40, platelets 247. Culture shows Staphylococcus aureus. Sensitivity is still pending. ASSESSMENT AND PLAN: Overall, patient is clinically stable and improving. Plan as ordered. Case and plan discussed with patient. Babatunde Diaz MD
[2017-08-27] MEDS: Piperacillin/Tazobact 3.375 GM in Sodium Chloride 0.9% 100 ML IVPB SCH ×2 (00:26→05:57)
[2017-08-27] MEDS: Lactobacillus Acidophilus 500 MU Cap PO SCH ×2 (09:13→17:33)
[2017-08-27 09:58] LABS: HEMOGLOBIN 13.2 g/dL (12.0-18.0); MEAN CELL VOLUME 80.9 fl (80.0-94.0); MEAN CORPUSCULAR HEMOGLOBIN 26.8 pg (27.0-31.0); MEAN CORPUSCULAR HGB CONC 33.2 g/dL (33.0-37.0); RBC 4.91 Mil/uL (4.40-5.90); RED CELL DISTRIBUTION WIDTH 13.8 % (11.5-14.5); WHITE BLOOD COUNT 11.6 K/uL (4.8-10.8)
[2017-08-27 10:07] LABS: ALBUMIN 3.7 g/dL (3.5-5.0)
[2017-08-27 12:24] LABS: HEPATITIS B SURFACE AG NEGATIVE (NEGATIVE)
[2017-08-27 12:30] LABS: HEPATITIS A IGM NEGATIVE (NEGATIVE); HEPATITIS B CORE AB Negative (NEGATIVE)
--- NOTE | 2017-08-27 12:35 | CP.PCM.PN ---
Subjective - Date & Time of Evaluation Date of Evaluation: 08/27/17 Time of Evaluation: 08:00 - Subjective Subjective: improving MRSA + less swelling no fever Objective - Vital Signs/Intake and Output Vital Signs (last 24 hours): Temp Pulse Resp BP Pulse Ox 98.0 F 70 19 114/71 96 08/27/17 07:41 08/27/17 07:41 08/27/17 07:41 08/27/17 07:41 08/27/17 07:41 - Medications Medications: Current Medications Acetaminophen (Tylenol 325mg Tab) 650 mg PO Q6 PRN PRN Reason: Pain, moderate (4-7) Acetaminophen (Tylenol 325mg Tab) 650 mg PO Q6 PRN PRN Reason: Headache Acyclovir (Zovirax) 800 mg PO 5XD MELODIE PRN Reason: Protocol Last Admin: 08/27/17 09:14 Dose: 800 mg Piperacillin Sod/Tazobactam (Sod 3.375 gm/ Sodium Chloride) 100 mls @ 100 mls/ hr IVPB 0000,0600,1200,1800 MELODIE PRN Reason: Protocol Last Admin: 08/27/17 05:57 Dose: 100 mls/hr Vancomycin HCl 1 gm/ Sodium (Chloride) 250 mls @ 166.667 mls/hr IVPB Q12 MELODIE PRN Reason: Protocol Last Admin: 08/27/17 09:16 Dose: Not Given Lactobacillus Acidophilus (Bacid Acidophilus) 1 cap PO BID MELODIE Last Admin: 08/27/17 09:13 Dose: 1 cap Linezolid (Zyvox) 600 mg PO Q12 MELODIE PRN Reason: Protocol Mupirocin (Bactroban Ointment) 1 applic TOP BID [facility] Last Admin: 08/27/17 09:13 Dose: 1 unit Vitamin A (Vitamin A & D Oint Ud Foilpak) 1 ea TOP PRN PRN PRN Reason: Dry mouth Last Admin: 08/26/17 08:58 Dose: 1 ea - Labs Labs: 08/27/17 09:52 08/27/17 09:52 PT 14.1 Seconds (9.8-13.1) H 08/23/17 16:41 INR 1.3 (0.9-1.2) H 08/23/17 16:41 APTT 35.2 Seconds (25.6-37.1) 08/23/17 16:41 - Constitutional Appears: Non-toxic, Chronically Ill - Head Exam Head Exam: NORMOCEPHALIC - Eye Exam Eye Exam: PERRL - ENT Exam ENT Exam: Mucous Membranes Dry - Neck Exam Neck Exam: absent: Lymphadenopathy - Respiratory Exam Respiratory Exam: Decreased Breath Sounds - Cardiovascular Exam Cardiovascular Exam: REGULAR RHYTHM, +S1, +S2 - GI/Abdominal Exam GI & Abdominal Exam: Distended, Soft - Rectal Exam Rectal Exam: Deferred - Exam Exam: NORMAL INSPECTION - Extremities Exam Extremities Exam: absent: Pedal Edema - Back Exam Back Exam: absent: CVA tenderness (L), CVA tenderness (R) - Neurological Exam Neurological Exam: Alert, Awake, Oriented x3 - Psychiatric Exam Psychiatric exam: Normal Mood - Skin Skin Exam: Dry Assessment and Plan (1) Abscess of lip Status: Acute (2) Infection of lip Status: Acute - Assessment and Plan (Free Text) Assessment: cont po zvox for 5 days follow up PMD
--- NOTE | 2017-08-27 12:38 | CP.PCM.PN ---
Subjective - Date & Time of Evaluation Date of Evaluation: 08/27/17 Time of Evaluation: 07:00 - Subjective Subjective: vanco held yestersay as lecvel was high creat level increasing stat renal consult recommended vanco d/c'd po zyvox started Objective - Vital Signs/Intake and Output Vital Signs (last 24 hours): Temp Pulse Resp BP Pulse Ox 98.0 F 70 19 114/71 96 08/27/17 07:41 08/27/17 07:41 08/27/17 07:41 08/27/17 07:41 08/27/17 07:41 - Medications Medications: Current Medications Acetaminophen (Tylenol 325mg Tab) 650 mg PO Q6 PRN PRN Reason: Pain, moderate (4-7) Acetaminophen (Tylenol 325mg Tab) 650 mg PO Q6 PRN PRN Reason: Headache Lactobacillus Acidophilus (Bacid Acidophilus) 1 cap PO BID [facility] Last Admin: 08/27/17 09:13 Dose: 1 cap Linezolid (Zyvox) 600 mg PO Q12 MELODIE PRN Reason: Protocol Mupirocin (Bactroban Ointment) 1 applic TOP BID [facility] Last Admin: 08/27/17 09:13 Dose: 1 unit Vitamin A (Vitamin A & D Oint Ud Foilpak) 1 ea TOP PRN PRN PRN Reason: Dry mouth Last Admin: 08/26/17 08:58 Dose: 1 ea - Labs Labs: 08/27/17 09:52 08/27/17 09:52 PT 14.1 Seconds (9.8-13.1) H 08/23/17 16:41 INR 1.3 (0.9-1.2) H 08/23/17 16:41 APTT 35.2 Seconds (25.6-37.1) 08/23/17 16:41 Assessment and Plan (1) Abscess of lip Status: Acute (2) Infection of lip Status: Acute
[2017-08-27 12:41] LABS: HEPATITIS C ANTIBODY Negative (NEGATIVE)
[2017-08-27] MEDS: Sodium Chloride 0.45% 1,000 ML IV SCH (14:08)
--- NOTE | 2017-08-27 17:18 | CP.PCM.PN ---
<Valerie Brewster - Last Filed: 08/27/17 17:14> Subjective - Date & Time of Evaluation Date of Evaluation: 08/27/17 Time of Evaluation: 07:30 - Subjective Subjective: Patient seen and examined at bedside with Dr. Diaz. Patient is tolerating antibiotic therapy and liquid diet. No complaints at this time. Objective - Vital Signs/Intake and Output Vital Signs (last 24 hours): Temp Pulse Resp BP Pulse Ox 98.2 F 82 20 111/68 98 08/27/17 15:42 08/27/17 15:42 08/27/17 15:42 08/27/17 15:42 08/27/17 15:42 - Medications Medications: Current Medications Acetaminophen (Tylenol 325mg Tab) 650 mg PO Q6 PRN PRN Reason: Pain, moderate (4-7) Acetaminophen (Tylenol 325mg Tab) 650 mg PO Q6 PRN PRN Reason: Headache Sodium Chloride (Sodium Chloride 0.45%) 1,000 mls @ 100 mls/hr IV .Q10H [facility] Stop: 08/28/17 13:01 Last Admin: 08/27/17 14:08 Dose: 100 mls/hr Lactobacillus Acidophilus (Bacid Acidophilus) 1 cap PO BID [facility] Last Admin: 08/27/17 09:13 Dose: 1 cap Linezolid (Zyvox) 600 mg PO Q12 MELODIE PRN Reason: Protocol Last Admin: 08/27/17 14:08 Dose: 600 mg Mupirocin (Bactroban Ointment) 1 applic TOP BID [facility] Last Admin: 08/27/17 09:13 Dose: 1 unit Vitamin A (Vitamin A & D Oint Ud Foilpak) 1 ea TOP PRN PRN PRN Reason: Dry mouth Last Admin: 08/26/17 08:58 Dose: 1 ea - Labs Labs: 08/27/17 09:52 08/27/17 09:52 PT 14.1 Seconds (9.8-13.1) H 08/23/17 16:41 INR 1.3 (0.9-1.2) H 08/23/17 16:41 APTT 35.2 Seconds (25.6-37.1) 08/23/17 16:41 - Constitutional Appears: No Acute Distress (obese) - Head Exam Head Exam: ATRAUMATIC, NORMOCEPHALIC - Eye Exam Eye Exam: EOMI, PERRL - ENT Exam ENT Exam: Mucous Membranes Dry Additional comments: lower lip with significant swelling, dried up blood - Neck Exam Neck Exam: Full ROM. absent: Lymphadenopathy - Respiratory Exam Respiratory Exam: Clear to Ausculation Bilateral, NORMAL BREATHING PATTERN - Cardiovascular Exam Cardiovascular Exam: REGULAR RHYTHM, +S1, +S2 - GI/Abdominal Exam GI & Abdominal Exam: Soft (obese), Normal Bowel Sounds - Extremities Exam Extremities Exam: Full ROM. absent: Pedal Edema - Neurological Exam Neurological Exam: Alert, Awake, Oriented x3 - Psychiatric Exam Psychiatric exam: Normal Affect, Normal Mood - Skin Skin Exam: Dry, Warm Assessment and Plan - Assessment and Plan (Free Text) Assessment: Assessment/Plan 1. Abscess of lip -s/p I & D and vanco (d/c'd 08/25/17; zosyn d/c'd 08/27/16) -Plastic surgery consult.Dr. Cristina, plastic surgeon consult appreciated -ID consult appreciated: start Zyvox PO x 5 days 2. Acute kidney injury -s/p vancomycin, d'c'd yesterday -1L NS IV at 100mls/hr -f/u repeat Creatinine 3. Transaminitis -resolved, today AST/ALT enzymes wnl -08/23/17: Abd US: Cholelithiasis -Lipid profile wnl, Hgba1c 5.5 -Hepatic panel negative -HIV negative 4. DVT Prophylaxis -renally dosed: Lovenox 30 mg SC QD <Diaz,Babatunde K - Last Filed: 09/03/17 12:27> Objective - Vital Signs/Intake and Output Vital Signs (last 24 hours): Temp Pulse Resp BP Pulse Ox 97.5 F L 77 18 129/81 96 08/30/17 08:25 08/30/17 08:25 08/30/17 08:25 08/30/17 08:25 08/30/17 08:25 - Labs Labs: 08/30/17 05:10 08/30/17 11:45 PT 14.1 Seconds (9.8-13.1) H 08/23/17 16:41 INR 1.3 (0.9-1.2) H 08/23/17 16:41 APTT 35.2 Seconds (25.6-37.1) 08/23/17 16:41 Assessment and Plan - Assessment and Plan (Free Text) Assessment: Patient was personally seen and examined by me in rounds with residents. Available labs and diagnostic data reviewed. Case, Patient's condition and management plan discussed with residents in rounds. Agree with resident's progress note. Plan: As ordered.
[2017-08-28 06:22] LABS: HEMOGLOBIN 12.7 g/dL (12.0-18.0); MEAN CELL VOLUME 81.6 fl (80.0-94.0); MEAN CORPUSCULAR HEMOGLOBIN 26.9 pg (27.0-31.0); MEAN CORPUSCULAR HGB CONC 32.9 g/dL (33.0-37.0); RBC 4.73 Mil/uL (4.40-5.90); RED CELL DISTRIBUTION WIDTH 13.5 % (11.5-14.5); WHITE BLOOD COUNT 14.1 K/uL (4.8-10.8)
[2017-08-28 06:34] LABS: ALB/GLOB RATIO 0.9 (1.0-2.1); ALBUMIN 3.6 g/dL (3.5-5.0); CALCIUM 8.6 mg/dL (8.4-10.2)
[2017-08-28] MEDS ORDERED: Enoxaparin 30 mg Syringe SC SCH (09:00)
[2017-08-28] MEDS: Lactobacillus Acidophilus 500 MU Cap PO SCH ×2 (10:29→17:10)
[2017-08-28] MEDS: Sodium Chloride 0.45% 1,000 ML IV SCH ×2 (10:30)
--- NOTE | 2017-08-28 11:17 | CP.PCM.PN ---
<Valerie Brewster - Last Filed: 08/28/17 11:13> Subjective - Date & Time of Evaluation Date of Evaluation: 08/28/17 Time of Evaluation: 07:05 - Subjective Subjective: Patient seen and examined at bedside with attending-Dr. Diaz. Patient laying in bed in no acute distress, reports he is tolerating solid food. Denies fevers, chills, SOB, weakness, dysuria or hematuria. No concerns at this time. Objective - Vital Signs/Intake and Output Vital Signs (last 24 hours): Temp Pulse Resp BP Pulse Ox 98.1 F 78 20 133/81 97 08/28/17 08:30 08/28/17 08:30 08/28/17 08:30 08/28/17 08:30 08/28/17 08:30 - Medications Medications: Current Medications Acetaminophen (Tylenol 325mg Tab) 650 mg PO Q6 PRN PRN Reason: Pain, moderate (4-7) Acetaminophen (Tylenol 325mg Tab) 650 mg PO Q6 PRN PRN Reason: Headache Sodium Chloride (Sodium Chloride 0.45%) 1,000 mls @ 100 mls/hr IV .Q10H [facility] Stop: 08/28/17 13:01 Last Admin: 08/28/17 10:30 Dose: 100 mls/hr Lactobacillus Acidophilus (Bacid Acidophilus) 1 cap PO BID [facility] Last Admin: 08/28/17 10:29 Dose: 1 cap Linezolid (Zyvox) 600 mg PO Q12 MELODIE PRN Reason: Protocol Last Admin: 08/28/17 10:29 Dose: 600 mg Mupirocin (Bactroban Ointment) 1 applic TOP BID [facility] Last Admin: 08/28/17 10:29 Dose: 1 unit Vitamin A (Vitamin A & D Oint Ud Foilpak) 1 ea TOP PRN PRN PRN Reason: Dry mouth Last Admin: 08/26/17 08:58 Dose: 1 ea - Labs Labs: 08/28/17 05:45 08/28/17 05:45 PT 14.1 Seconds (9.8-13.1) H 08/23/17 16:41 INR 1.3 (0.9-1.2) H 08/23/17 16:41 APTT 35.2 Seconds (25.6-37.1) 08/23/17 16:41 - Constitutional Appears: No Acute Distress - Head Exam Head Exam: ATRAUMATIC, NORMOCEPHALIC - Eye Exam Eye Exam: EOMI, PERRL - ENT Exam ENT Exam: Mucous Membranes Moist Additional comments: mildly improved swelling of lower lip, no discharge, no foul odor - Neck Exam Neck Exam: Full ROM - Respiratory Exam Respiratory Exam: Clear to Ausculation Bilateral, NORMAL BREATHING PATTERN - Cardiovascular Exam Cardiovascular Exam: REGULAR RHYTHM, +S1, +S2 - Extremities Exam Extremities Exam: Full ROM. absent: Pedal Edema - Neurological Exam Neurological Exam: Alert, Awake, CN II-XII Intact, Oriented x3 - Psychiatric Exam Psychiatric exam: Normal Affect, Normal Mood - Skin Skin Exam: Dry, Warm Assessment and Plan - Assessment and Plan (Free Text) Assessment: 1. Abscess of lip -s/p I & D and vanco (d/c'd 08/25/17; zosyn d/c'd 08/27/16) -Plastic surgery consult.Dr. Cristina, plastic surgeon consult appreciated -ID consult appreciated: Day 09/30 Zyvox PO x 5 days 2. Acute kidney injury -s/p vancomycin, d'c'd 08/26/17 -1L NS IV at 100mls/hr -repeat Creatinine this AM stable at 2.8 -Nephrology consult appreciated-Dr. Rosado 3. DVT Prophylaxis -JOYCE stockings and SCD's <Babatunde Diaz K - Last Filed: 09/03/17 12:36> Objective - Vital Signs/Intake and Output Vital Signs (last 24 hours): Temp Pulse Resp BP Pulse Ox 97.5 F L 77 18 129/81 96 08/30/17 08:25 08/30/17 08:25 08/30/17 08:25 08/30/17 08:25 08/30/17 08:25 - Labs Labs: 08/30/17 05:10 08/30/17 11:45 PT 14.1 Seconds (9.8-13.1) H 08/23/17 16:41 INR 1.3 (0.9-1.2) H 08/23/17 16:41 APTT 35.2 Seconds (25.6-37.1) 08/23/17 16:41 Assessment and Plan - Assessment and Plan (Free Text) Assessment: Patient was personally seen and examined by me in rounds with residents. Available labs and diagnostic data reviewed. Case, Patient's condition and management plan discussed with residents in rounds. Agree with resident's progress note. Plan: As ordered.
--- NOTE | 2017-08-28 12:06 | CP.PCM.PN ---
Subjective - Date & Time of Evaluation Date of Evaluation: 08/28/17 Time of Evaluation: 09:00 - Subjective Subjective: renal function stable but altered discussed with patient cont iv fluids Objective - Vital Signs/Intake and Output Vital Signs (last 24 hours): Temp Pulse Resp BP Pulse Ox 98.1 F 78 20 133/81 97 08/28/17 08:30 08/28/17 08:30 08/28/17 08:30 08/28/17 08:30 08/28/17 08:30 - Medications Medications: Current Medications Acetaminophen (Tylenol 325mg Tab) 650 mg PO Q6 PRN PRN Reason: Pain, moderate (4-7) Acetaminophen (Tylenol 325mg Tab) 650 mg PO Q6 PRN PRN Reason: Headache Sodium Chloride (Sodium Chloride 0.45%) 1,000 mls @ 100 mls/hr IV .Q10H [facility] Stop: 08/28/17 13:01 Last Admin: 08/28/17 10:30 Dose: 100 mls/hr Lactobacillus Acidophilus (Bacid Acidophilus) 1 cap PO BID MELODIE Last Admin: 08/28/17 10:29 Dose: 1 cap Linezolid (Zyvox) 600 mg PO Q12 MELODIE PRN Reason: Protocol Last Admin: 08/28/17 10:29 Dose: 600 mg Mupirocin (Bactroban Ointment) 1 applic TOP BID [facility] Last Admin: 08/28/17 10:29 Dose: 1 unit Vitamin A (Vitamin A & D Oint Ud Foilpak) 1 ea TOP PRN PRN PRN Reason: Dry mouth Last Admin: 08/26/17 08:58 Dose: 1 ea - Labs Labs: 08/28/17 05:45 08/28/17 05:45 PT 14.1 Seconds (9.8-13.1) H 08/23/17 16:41 INR 1.3 (0.9-1.2) H 08/23/17 16:41 APTT 35.2 Seconds (25.6-37.1) 08/23/17 16:41 - Constitutional Appears: Non-toxic, Chronically Ill - Head Exam Head Exam: NORMOCEPHALIC - Eye Exam Eye Exam: PERRL - ENT Exam ENT Exam: Mucous Membranes Dry, Normal Oropharynx - Neck Exam Neck Exam: absent: Lymphadenopathy - Respiratory Exam Respiratory Exam: Decreased Breath Sounds - Cardiovascular Exam Cardiovascular Exam: REGULAR RHYTHM - GI/Abdominal Exam GI & Abdominal Exam: Distended, Soft - Rectal Exam Rectal Exam: Deferred - Exam Exam: NORMAL INSPECTION - Extremities Exam Extremities Exam: absent: Pedal Edema - Back Exam Back Exam: absent: CVA tenderness (L), CVA tenderness (R) - Neurological Exam Neurological Exam: Alert, Awake, Oriented x3 Assessment and Plan (1) Abscess of lip Status: Acute (2) Infection of lip Status: Acute - Assessment and Plan (Free Text) Assessment: cont hydration vanco d/c'd renal eval suggested
--- NOTE | 2017-08-28 21:12 | CP.PCM.CON ---
History of Present Illness - History of Present Illness History of Present Illness: pt is seen and examined, full consult is dictated #[id number] 1> non oliguric Sherrill r/o AIn sec to vanco 2. lower lip MRsa infection s/p I & d c/w ic abx, check urine for eosinophils Past Patient History - Past Social History Smoking Status: Never Smoked - CARDIAC Hx Cardiac Disorders: No - PULMONARY Hx Respiratory Disorders: No - NEUROLOGICAL Hx Neurological Disorder: No - HEENT Hx HEENT Problems: No - RENAL Hx Chronic Kidney Disease: No - ENDOCRINE/METABOLIC Hx Endocrine Disorders: No - HEMATOLOGICAL/ONCOLOGICAL Hx Blood Disorders: No - INTEGUMENTARY Hx Dermatological Problems: No - MUSCULOSKELETAL/RHEUMATOLOGICAL Hx Musculoskeletal Disorders: No Hx Falls: No - GENITOURINARY/GYNECOLOGICAL Hx Genitourinary Disorders: No - PSYCHIATRIC Hx Psychophysiologic Disorder: No Hx Substance Use: No - SURGICAL HISTORY Hx Surgeries: No - ANESTHESIA Hx Anesthesia: No Meds Allergies/Adverse Reactions: Allergies Allergy/AdvReac Type Severity Reaction Status Date / Time naproxen [From Naprosyn] AdvReac Verified 08/20/17 08:09 - Medications Medications: Current Medications Acetaminophen (Tylenol 325mg Tab) 650 mg PO Q6 PRN PRN Reason: Pain, moderate (4-7) Acetaminophen (Tylenol 325mg Tab) 650 mg PO Q6 PRN PRN Reason: Headache Lactobacillus Acidophilus (Bacid Acidophilus) 1 cap PO BID [facility] Last Admin: 08/28/17 17:10 Dose: 1 cap Linezolid (Zyvox) 600 mg PO Q12 MELODIE PRN Reason: Protocol Last Admin: 08/28/17 10:29 Dose: 600 mg Mupirocin (Bactroban Ointment) 1 applic TOP BID [facility] Last Admin: 08/28/17 17:11 Dose: 1 unit Vitamin A (Vitamin A & D Oint Ud Foilpak) 1 ea TOP PRN PRN PRN Reason: Dry mouth Last Admin: 08/26/17 08:58 Dose: 1 ea Results - Vital Signs Recent Vital Signs: Last Vital Signs Temp 98.6 F 08/28/17 16:09 Pulse 83 08/28/17 16:09 Resp 18 08/28/17 16:09 BP 128/72 08/28/17 16:09 Pulse Ox 97 08/28/17 16:09 - Labs Result Diagrams: 08/28/17 05:45 08/28/17 05:45 Labs: Laboratory Results - last 24 hr 08/28/17 08/28/17 08/28/17 05:45 05:45 19:00 WBC 14.1 H RBC 4.73 Hgb 12.7 Hct 38.6 MCV 81.6 MCH 26.9 L MCHC 32.9 L RDW 13.5 Plt Count 248 Sodium 140 Potassium 4.6 Chloride 107 Carbon Dioxide 22 Anion Gap 16 BUN 20 Creatinine 2.8 H Est GFR ( Amer) 31 Est GFR (Non-Af Amer) 25 Random Glucose 87 Calcium 8.6 Total Bilirubin 0.6 AST 52 ALT 58 Alkaline Phosphatase 92 Total Protein 7.5 Albumin 3.6 Globulin 3.9 Albumin/Globulin Ratio 0.9 L Urine Collection Time 24 Urine Total Volume 4800 Ur Creatinine 24 Hour 1776.0
[2017-08-29 00:44] LABS: SQUAMOUS EPITHIAL < 1 /hpf (0-5); URINE BACTERIA RARE (<OCC); URINE BILIRUBIN NEGATIVE (NEGATIVE); URINE BLOOD SMALL (NEGATIVE); URINE CLARITY CLEAR (Clear); URINE COLOR STRAW (YELLOW); URINE GLUCOSE (UA) NEG (Normal); URINE LEUKOCYTE ESTERASE NEG Leu/uL (Negative); URINE NITRATE NEGATIVE (NEGATIVE); URINE PROTEIN NEGATIVE (NEGATIVE); URINE UROBILINOGEN 0.2-1.0 mg/dL (0.2-1.0)
[2017-08-29 06:39] LABS: HEMOGLOBIN 12.5 g/dL (12.0-18.0); MEAN CELL VOLUME 81.6 fl (80.0-94.0); MEAN CORPUSCULAR HEMOGLOBIN 26.7 pg (27.0-31.0); MEAN CORPUSCULAR HGB CONC 32.7 g/dL (33.0-37.0); RBC 4.67 Mil/uL (4.40-5.90); RED CELL DISTRIBUTION WIDTH 13.9 % (11.5-14.5); WHITE BLOOD COUNT 14.5 K/uL (4.8-10.8)
[2017-08-29 06:45] LABS: CALCIUM 8.9 mg/dL (8.4-10.2)
--- NOTE | 2017-08-29 07:24 | CON ---
DATE: 08/28/2017 RENAL CONSULTATION LOCATION: Room 662, Bed 2 REQUESTING PHYSICIAN: Babatunde Diaz MD. REASON FOR CONSULTATION: Acute renal failure, for further evaluation. HISTORY OF PRESENT ILLNESS: Mr. Huertas is a 37-year-old obese male with no significant past medical history, presented to the emergency room with chief complaints of lower lip swelling and abscess. Patient reported initially that 6 years ago he pressed a pimple over his inferior lower lip and 3 days after it got swollen and painful. The patient came to the emergency room initially for further evaluation and was prescribed clindamycin, but 2 days after treatment, it got worse with more swelling associated with chills and subjective fever. Status post I and D by Plastic Surgery. The patient was started on IV antibiotics. Now renal consult requested for acute kidney injury. Patient denies any chest pain, palpitation. Denies any fever, cough. Denies any abdominal pain. Denies any nausea, vomiting, diarrhea. Denies any skin rash. The patient does complain of slight flank pain since he was taking vancomycin. No urinary symptoms. No edema of the legs. No skin rashes. PAST MEDICAL HISTORY: Denies any high blood pressure, diabetes. PAST SURGICAL HISTORY: Denies any surgeries. ALLERGIES: ALLERGIC TO NAPROXEN ASSOCIATED WITH COUGH. SOCIAL HISTORY: He denies any smoking. Denies any drug abuse. Patient does complain of social alcohol use. PERSONAL HISTORY: He is single. He has a girlfriend. FAMILTY HISTORY: His father is diabetic and hypertensive. Mother is positive for hyperlipidemia. He has one sister. CURRENT MEDICATIONS: Include lactobacillus 1 capsule p.o. b.i.d., Bactroban ointment topical b.i.d., Tylenol, Zyvox 600 mg p.o. q.12 hours. Vancomycin was discontinued. REVIEW OF SYSTEMS: Significant for lower lip swelling and pain, status post I an D of the lower lip. All other review of systems are reviewed and are negative. PHYSICAL EXAMINATION: VITAL SIGNS: Blood pressure 128/72, pulse 83, respiration 18, temperature 98.6, saturation 97%. Height 5 feet 6 inches. Weight is 230 pounds. BMI 37.1. GENERAL: Mr. Huertas is a 37-year-old middle-aged obese male, moderately built, moderately nourished, not in any distress. HEENT: Pupils are normal and reactive to light and accommodation. Conjunctivae pink. Sclerae are anicteric. Tongue is moist. Trachea is midline. Patient has tongue swelling and crust on the lower lip. No thyroid enlargement. LUNGS: Symmetric on both sides. Bilateral breath sounds are present. Clear on auscultation. CVS: Calera at the fifth intercostal space, 1/2 inch medial to midclavicular line. S1 and S2 audible. No murmur. No gallop. ABDOMEN: Normal in appearance. Soft, tympanic. No guarding. No rigidity. No hepatosplenomegaly. 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 Nonfocal neuro examination . Cranial nerves II through XII grossly intact. Sensory and motor system is within normal limits. EXTREMITIES: No cyanosis. No clubbing. No edema. LABORATORY DATA: Includes; as of 08/12/2017, WBC 16.9, hemoglobin 14.5, hematocrit is 44.1 and platelets 243. Sodium 139, potassium 4.3, chloride 98, CO2 of 32, BUN 6, creatinine 0.7, glucose 98, calcium 9.1. Total bilirubin 0.8, AST 147, ALT 254, alkaline phosphatase 183, total protein 8.4, albumin is 4.4. Hepatitis vancomycin trough level as of 08/26/2017 is 30.7 and vancomycin random level as of 08/26/2017 is 15.3. As of 08/23/2017, BUN and creatinine are 7/0.8. As of 08/24/2017, BUN and creatinine of 9/0.8, cholesterol 152, LDL 99, HDL 31. As of 08/25/2017, BUN and creatinine are 12/1.3. AST 119, ALT 133, total protein 7.6. As of 08/26/2017, sodium 144, potassium 4.3, chloride 106, CO2 29, BUN 17, creatinine 2.5, glucose 97, calcium 9.3. As of 08/27/2017, sodium 145, potassium 4, chloride 105, CO2 26, BUN 18, creatinine 2.9, and glucose 140. As of 08/28/2017, sodium 140, potassium 4.6, chloride 107, CO2 of 22, BUN 20, creatinine 2.8, glucose 87, calcium 8.6, total protein 0.6, AST 52, ALT 58, alkaline phosphatase 92, total protein 7.5, albumin is 3.6. 24-hour urine volume is 4800 and 24-hour urine creatinine is 1776 mg. ASSESSMENT AND PLAN: In summary, Mr. Huertas is a 37-year-old young male with lower lip cellulitis and abscess, status post incision and drainage and wound culture positive for methicillin-resistant Staphylococcus aureus. He was initially on vancomycin and subsequently vancomycin was discontinued and started on Zyvox with increased BUN and creatinine. 1. Nonoliguric acute renal failure, most likely secondary to antibiotics - vancomycin; cannot rule out acute interstitial nephritis. 2. Lower lip methicillin-resistant Staphylococcus aureus infection and abscess, status post incision and drainage. Continue Zyvox as per Dr. Neville. Encourage p.o fluid intake and repeat BMP in a.m. and check urine for eosinophils. We will follow with you. We will avoid nephrotoxic agents. Thank you for allowing me to participate in your patient's care. Sherley Rosado MD
[2017-08-29] MEDS: Lactobacillus Acidophilus 500 MU Cap PO SCH ×2 (08:36→16:33)
--- NOTE | 2017-08-29 12:34 | CP.PCM.PN ---
<Valerie Brewster - Last Filed: 08/29/17 17:11> Subjective - Date & Time of Evaluation Date of Evaluation: 08/29/17 Time of Evaluation: 08:00 - Subjective Subjective: Patient seen and examined at bedside with attending Dr. Diaz. Patient denies SOB , weakness, dizziness or chest pain. Is tolerating PO diet. No concerns or complaints at this time. Objective - Vital Signs/Intake and Output Vital Signs (last 24 hours): Temp Pulse Resp BP Pulse Ox 98.0 F 75 20 116/75 97 08/29/17 08:00 08/29/17 08:00 08/29/17 08:00 08/29/17 08:00 08/29/17 08:00 - Medications Medications: Current Medications Acetaminophen (Tylenol 325mg Tab) 650 mg PO Q6 PRN PRN Reason: Pain, moderate (4-7) Acetaminophen (Tylenol 325mg Tab) 650 mg PO Q6 PRN PRN Reason: Headache Acetaminophen (Tylenol 325mg Tab) 650 mg PO Q6 PRN PRN Reason: Fever >100.4 F Last Admin: 08/29/17 00:31 Dose: 650 mg Sodium Chloride (Sodium Chloride 0.9%) 1,000 mls @ 125 mls/hr IV .Q8H [facility] Stop: 08/30/17 12:09 Lactobacillus Acidophilus (Bacid Acidophilus) 1 cap PO BID MELODIE Last Admin: 08/29/17 08:36 Dose: 1 cap Linezolid (Zyvox) 600 mg PO Q12 MELODIE PRN Reason: Protocol Last Admin: 08/29/17 08:36 Dose: 600 mg Mupirocin (Bactroban Ointment) 1 applic TOP BID [facility] Last Admin: 08/29/17 08:36 Dose: 1 unit Vitamin A (Vitamin A & D Oint Ud Foilpak) 1 ea TOP PRN PRN PRN Reason: Dry mouth Last Admin: 08/26/17 08:58 Dose: 1 ea - Labs Labs: 08/29/17 05:35 08/29/17 05:35 PT 14.1 Seconds (9.8-13.1) H 08/23/17 16:41 INR 1.3 (0.9-1.2) H 08/23/17 16:41 APTT 35.2 Seconds (25.6-37.1) 08/23/17 16:41 - Constitutional Appears: No Acute Distress - Head Exam Head Exam: ATRAUMATIC, NORMOCEPHALIC - Eye Exam Eye Exam: EOMI - ENT Exam ENT Exam: Mucous Membranes Moist Additional comments: lower lip swelling improved further, dry scab over area of prior I&D, no discharge or malodor - Neck Exam Neck Exam: Full ROM - Respiratory Exam Respiratory Exam: Clear to Ausculation Bilateral, NORMAL BREATHING PATTERN - Cardiovascular Exam Cardiovascular Exam: REGULAR RHYTHM, +S1, +S2 - Extremities Exam Extremities Exam: Full ROM. absent: Pedal Edema - Neurological Exam Neurological Exam: Alert, Awake, CN II-XII Intact, Oriented x3 - Psychiatric Exam Psychiatric exam: Normal Affect, Normal Mood - Skin Skin Exam: Dry, Warm Assessment and Plan - Assessment and Plan (Free Text) Assessment: 1. Abscess of lip -s/p I & D and vanco (d/c'd 08/25/17; zosyn d/c'd 08/27/16) -Plastic surgery consult.Dr. Cristina, plastic surgeon consult appreciated -ID consult appreciated: Day 3/5 Zyvox PO x 5 days 2. Acute kidney injury -s/p vancomycin, d'c'd 08/26/17 -1L NS IV at 125mls/hr -repeat Creatinine this AM stable at 2.8 -Nephrology consult appreciated-Dr. Rosado: non oliguric MICHAEL, check urine for eosinophils -f/u urine culture and BMP 3. DVT Prophylaxis -JOYCE stockings and SCD's <Babatunde Diaz K - Last Filed: 09/03/17 12:51> Objective - Vital Signs/Intake and Output Vital Signs (last 24 hours): Temp Pulse Resp BP Pulse Ox 97.5 F L 77 18 129/81 96 08/30/17 08:25 08/30/17 08:25 08/30/17 08:25 08/30/17 08:25 08/30/17 08:25 - Labs Labs: 08/30/17 05:10 08/30/17 11:45 PT 14.1 Seconds (9.8-13.1) H 08/23/17 16:41 INR 1.3 (0.9-1.2) H 08/23/17 16:41 APTT 35.2 Seconds (25.6-37.1) 08/23/17 16:41 Assessment and Plan - Assessment and Plan (Free Text) Assessment: Patient was personally seen and examined by me in rounds with residents. Available labs and diagnostic data reviewed. Case, Patient's condition and management plan discussed with residents in rounds. Agree with resident's progress note. Plan: As ordered.
[2017-08-29] MEDS: Sodium Chloride 0.9% 1,000 ML IV SCH ×2 (13:20→20:50)
[2017-08-29 15:13] LABS: ALBUMIN 54.9 Relative %; ALPHA-1 GLOBULIN 7.5 Relative %
[2017-08-30] MEDS: Sodium Chloride 0.9% 1,000 ML IV SCH (04:38)
[2017-08-30 05:45] LABS: HEMOGLOBIN 11.9 g/dL (12.0-18.0); MEAN CELL VOLUME 80.8 fl (80.0-94.0); MEAN CORPUSCULAR HEMOGLOBIN 26.3 pg (27.0-31.0); MEAN CORPUSCULAR HGB CONC 32.5 g/dL (33.0-37.0); RBC 4.52 Mil/uL (4.40-5.90); RED CELL DISTRIBUTION WIDTH 13.8 % (11.5-14.5); WHITE BLOOD COUNT 15.8 K/uL (4.8-10.8)
[2017-08-30 06:01] LABS: CALCIUM 8.7 mg/dL (8.4-10.2)
--- NOTE | 2017-08-30 07:55 | CP.PCM.PN ---
Subjective - Date & Time of Evaluation Date of Evaluation: 08/30/17 Time of Evaluation: 07:25 Objective - Vital Signs/Intake and Output Vital Signs (last 24 hours): Temp Pulse Resp BP Pulse Ox 98.3 F 82 19 128/78 97 08/30/17 00:29 08/30/17 00:29 08/30/17 00:29 08/30/17 00:29 08/30/17 00:29 - Medications Medications: Current Medications Acetaminophen (Tylenol 325mg Tab) 650 mg PO Q6 PRN PRN Reason: Pain, moderate (4-7) Acetaminophen (Tylenol 325mg Tab) 650 mg PO Q6 PRN PRN Reason: Headache Acetaminophen (Tylenol 325mg Tab) 650 mg PO Q6 PRN PRN Reason: Fever >100.4 F Last Admin: 08/29/17 00:31 Dose: 650 mg Sodium Chloride (Sodium Chloride 0.9%) 1,000 mls @ 125 mls/hr IV .Q8H [facility] Stop: 08/30/17 12:09 Last Admin: 08/30/17 04:38 Dose: Not Given Sodium Chloride (Sodium Chloride 0.9%) 1,000 mls @ 125 mls/hr IV .Q8H [facility] Stop: 08/31/17 07:52 Lactobacillus Acidophilus (Bacid Acidophilus) 1 cap PO BID [facility] Last Admin: 08/29/17 16:33 Dose: 1 cap Linezolid (Zyvox) 600 mg PO Q12 MELODIE PRN Reason: Protocol Last Admin: 08/29/17 20:50 Dose: 600 mg Mupirocin (Bactroban Ointment) 1 applic TOP BID [facility] Last Admin: 08/29/17 16:33 Dose: 1 unit Vitamin A (Vitamin A & D Oint Ud Foilpak) 1 ea TOP PRN PRN PRN Reason: Dry mouth Last Admin: 08/26/17 08:58 Dose: 1 ea - Labs Labs: 08/30/17 05:10 08/30/17 05:10 PT 14.1 Seconds (9.8-13.1) H 08/23/17 16:41 INR 1.3 (0.9-1.2) H 08/23/17 16:41 APTT 35.2 Seconds (25.6-37.1) 08/23/17 16:41
[2017-08-30] MEDS ORDERED: Sodium Chloride 0.9% 1,000 ML IV SCH (08:00)
[2017-08-30 08:25] VITALS: BP 129/81; PULSE 77; RESP 18; TEMP 97.5; O2SAT 96
[2017-08-30] MEDS: Lactobacillus Acidophilus 500 MU Cap PO SCH (08:25)
--- NOTE | 2017-08-30 10:51 | CP.PCM.PN ---
Subjective - Date & Time of Evaluation Date of Evaluation: 08/30/17 Time of Evaluation: 10:50 - Subjective Subjective: pt is seen and examined, follow up consult is dictated #[id number] Objective - Vital Signs/Intake and Output Vital Signs (last 24 hours): Temp Pulse Resp BP Pulse Ox 97.5 F L 77 18 129/81 96 08/30/17 08:25 08/30/17 08:25 08/30/17 08:25 08/30/17 08:25 08/30/17 08:25 - Medications Medications: Current Medications Acetaminophen (Tylenol 325mg Tab) 650 mg PO Q6 PRN PRN Reason: Pain, moderate (4-7) Acetaminophen (Tylenol 325mg Tab) 650 mg PO Q6 PRN PRN Reason: Headache Acetaminophen (Tylenol 325mg Tab) 650 mg PO Q6 PRN PRN Reason: Fever >100.4 F Last Admin: 08/29/17 00:31 Dose: 650 mg Sodium Chloride (Sodium Chloride 0.9%) 1,000 mls @ 125 mls/hr IV .Q8H [facility] Stop: 08/30/17 12:09 Last Admin: 08/30/17 04:38 Dose: Not Given Sodium Chloride (Sodium Chloride 0.9%) 1,000 mls @ 125 mls/hr IV .Q8H [facility] Stop: 08/31/17 07:52 Last Admin: 08/30/17 08:14 Dose: 125 mls/hr Lactobacillus Acidophilus (Bacid Acidophilus) 1 cap PO BID [facility] Last Admin: 08/30/17 08:25 Dose: 1 cap Linezolid (Zyvox) 600 mg PO Q12 MELODIE PRN Reason: Protocol Last Admin: 08/30/17 08:25 Dose: 600 mg Mupirocin (Bactroban Ointment) 1 applic TOP BID [facility] Last Admin: 08/30/17 08:26 Dose: 1 unit Vitamin A (Vitamin A & D Oint Ud Foilpak) 1 ea TOP PRN PRN PRN Reason: Dry mouth Last Admin: 08/26/17 08:58 Dose: 1 ea - Labs Labs: 08/30/17 05:10 08/30/17 05:10 PT 14.1 Seconds (9.8-13.1) H 08/23/17 16:41 INR 1.3 (0.9-1.2) H 08/23/17 16:41 APTT 35.2 Seconds (25.6-37.1) 08/23/17 16:41
--- NOTE | 2017-08-30 11:16 | RAD ---
HISTORY: Leukocytosis, r/o pneumonia COMPARISON: No prior. TECHNIQUE: Chest PA and lateral FINDINGS: LUNGS: No active pulmonary disease. PLEURA: No significant pleural effusion identified. No pneumothorax apparent. CARDIOVASCULAR: Upper limits normal cardiac size. No pulmonary vascular derangement identified. OSSEOUS STRUCTURES: No significant abnormalities. VISUALIZED UPPER ABDOMEN: Normal. OTHER FINDINGS: None. IMPRESSION: Upper limits normal cardiac size. No pulmonary derangement identified. No acute infiltrate, pleural effusion or pneumothorax bilaterally.
--- NOTE | 2017-08-30 12:20 | CP.PCM.PN ---
Subjective - Date & Time of Evaluation Date of Evaluation: 08/30/17 Time of Evaluation: 09:00 - Subjective Subjective: renal function improving cleared by renal lip is better Objective - Vital Signs/Intake and Output Vital Signs (last 24 hours): Temp Pulse Resp BP Pulse Ox 97.5 F L 77 18 129/81 96 08/30/17 08:25 08/30/17 08:25 08/30/17 08:25 08/30/17 08:25 08/30/17 08:25 - Medications Medications: Current Medications Acetaminophen (Tylenol 325mg Tab) 650 mg PO Q6 PRN PRN Reason: Pain, moderate (4-7) Acetaminophen (Tylenol 325mg Tab) 650 mg PO Q6 PRN PRN Reason: Headache Acetaminophen (Tylenol 325mg Tab) 650 mg PO Q6 PRN PRN Reason: Fever >100.4 F Last Admin: 08/29/17 00:31 Dose: 650 mg Sodium Chloride (Sodium Chloride 0.9%) 1,000 mls @ 125 mls/hr IV .Q8H [facility] Stop: 08/31/17 07:52 Last Admin: 08/30/17 08:14 Dose: 125 mls/hr Lactobacillus Acidophilus (Bacid Acidophilus) 1 cap PO BID [facility] Last Admin: 08/30/17 08:25 Dose: 1 cap Linezolid (Zyvox) 600 mg PO Q12 MELODIE PRN Reason: Protocol Last Admin: 08/30/17 08:25 Dose: 600 mg Mupirocin (Bactroban Ointment) 1 applic TOP BID [facility] Last Admin: 08/30/17 08:26 Dose: 1 unit Vitamin A (Vitamin A & D Oint Ud Foilpak) 1 ea TOP PRN PRN PRN Reason: Dry mouth Last Admin: 08/26/17 08:58 Dose: 1 ea - Labs Labs: 08/30/17 05:10 08/30/17 05:10 PT 14.1 Seconds (9.8-13.1) H 08/23/17 16:41 INR 1.3 (0.9-1.2) H 08/23/17 16:41 APTT 35.2 Seconds (25.6-37.1) 08/23/17 16:41 - Constitutional Appears: Non-toxic - Head Exam Head Exam: NORMOCEPHALIC - Eye Exam Eye Exam: absent: Scleral icterus - ENT Exam ENT Exam: Normal External Ear Exam - Neck Exam Neck Exam: absent: Lymphadenopathy - Respiratory Exam Respiratory Exam: Decreased Breath Sounds, Clear to Ausculation Bilateral - Cardiovascular Exam Cardiovascular Exam: REGULAR RHYTHM, +S1, +S2 - GI/Abdominal Exam GI & Abdominal Exam: Distended, Soft - Rectal Exam Rectal Exam: Deferred - Exam Exam: NORMAL INSPECTION - Back Exam Back Exam: absent: CVA tenderness (L), CVA tenderness (R) - Neurological Exam Neurological Exam: Alert, Awake, Oriented x3 Assessment and Plan (1) Abscess of lip Status: Acute (2) Infection of lip Status: Acute - Assessment and Plan (Free Text) Plan: d/c home on PO rx follow up Dr Adam
--- NOTE | 2017-08-30 14:12 | CP.PCM.DIS ---
Provider - Provider Date of Admission: 08/23/17 09:15 Attending physician: Babatunde Diaz MD Primary care physician: Dr. Diaz Consults: ID- Dr. Neville, Nephrology-Dr. Rosado Time Spent in preparation of Discharge (in minutes): 30 Diagnosis - Discharge Diagnosis (1) Abscess of lip Status: Resolved Priority: Low Hospital Course - Lab Results Lab Results: Micro Results 08/29/17 12:45 Blood Blood Culture - Preliminary NO GROWTH AFTER 24 HOURS 08/28/17 23:34 Urine Urine Culture - Final No Growth (<1,000 CFU/ML) 08/22/17 13:54 Blood-Venous Blood Culture - Final NO GROWTH AFTER 5 DAYS 08/22/17 13:54 Blood-Venous Gram Stain - Final TEST NOT PERFORMED 08/22/17 13:36 Blood-Venous Blood Culture - Final NO GROWTH AFTER 5 DAYS 08/22/17 13:36 Blood-Venous Gram Stain - Final TEST NOT PERFORMED 08/22/17 12:04 Lip Gram Stain - Final 08/22/17 12:04 Lip Wound Culture - Final Methicillin Resistant S Aureus Most Recent Lab Values WBC 15.8 K/uL (4.8-10.8) H 08/30/17 05:10 RBC 4.52 Mil/uL (4.40-5.90) 08/30/17 05:10 Hgb 11.9 g/dL (12.0-18.0) L 08/30/17 05:10 Hct 36.5 % (35.0-51.0) 08/30/17 05:10 MCV 80.8 fl (80.0-94.0) 08/30/17 05:10 MCH 26.3 pg (27.0-31.0) L 08/30/17 05:10 MCHC 32.5 g/dL (33.0-37.0) L 08/30/17 05:10 RDW 13.8 % (11.5-14.5) 08/30/17 05:10 Plt Count 240 K/uL (130-400) 08/30/17 05:10 MPV 8.6 fl (7.2-11.7) 08/25/17 14:15 Neut % (Auto) 71.5 % (50.0-75.0) 08/25/17 14:15 Lymph % (Auto) 16.8 % (20.0-40.0) L 08/25/17 14:15 [place] % (Auto) 9.4 % (0.0-10.0) 08/25/17 14:15 Eos % (Auto) 1.9 % (0.0-4.0) 08/25/17 14:15 Baso % (Auto) 0.4 % (0.0-2.0) 08/25/17 14:15 Neut # 8.7 K/uL (1.8-7.0) H 08/25/17 14:15 Lymph # 2.0 K/uL (1.0-4.3) 08/25/17 14:15 [place] # 1.1 K/uL (0.0-0.8) H 08/25/17 14:15 Eos # 0.2 K/uL (0.0-0.7) 08/25/17 14:15 Baso # 0.0 K/uL (0.0-0.2) 08/25/17 14:15 PT 14.1 Seconds (9.8-13.1) H 08/23/17 16:41 INR 1.3 (0.9-1.2) H 08/23/17 16:41 APTT 35.2 Seconds (25.6-37.1) 08/23/17 16:41 pO2 19 mm/Hg (30-55) L 08/22/17 12:37 VBG pH 7.39 (7.32-7.43) 08/22/17 12:37 VBG pCO2 54 mmHg (40-60) 08/22/17 12:37 VBG HCO3 27.6 mmol/L 08/22/17 12:37 VBG Total CO2 34.4 mmol/L (22-28) H 08/22/17 12:37 VBG O2 Sat (Calc) 37.4 % (40-65) L 08/22/17 12:37 VBG Base Excess 5.9 mmol/L (0.0-2.0) H 08/22/17 12:37 VBG Potassium 4.4 mmol/L (3.6-5.2) 08/22/17 12:37 A-a O2 Difference 63.0 mm/Hg 08/22/17 12:37 Sodium 136.0 mmol/L (132-148) 08/22/17 12:37 Chloride 102.0 mmol/L (98-107) 08/22/17 12:37 Glucose 103 mg/dL (75-110) 08/22/17 12:37 Lactate 1.1 mmol/L (0.7-2.1) 08/22/17 12:37 FiO2 21.0 % 08/22/17 12:37 Crit Value Called To Eric campoverde 08/22/17 12:37 Crit Value Called By Marilyn 08/22/17 12:37 Crit Value Read Back Y 08/22/17 12:37 Blood Gas Notified Time 1327 08/22/17 12:37 Sodium 142 mmol/l (132-148) 08/30/17 05:10 Potassium 4.0 MMOL/L (3.6-5.0) 08/30/17 05:10 Chloride 110 mmol/L (98-107) H 08/30/17 05:10 Carbon Dioxide 23 mmol/L (22-30) 08/30/17 05:10 Anion Gap 13 (10-20) 08/30/17 05:10 BUN 22 mg/dl (9-20) H 08/30/17 05:10 Creatinine 2.6 mg/dl (0.8-1.5) H 08/30/17 11:45 Est GFR ( Amer) 34 08/30/17 11:45 Est GFR (Non-Af Amer) 28 08/30/17 11:45 Random Glucose 92 mg/dL (75-110) 08/30/17 05:10 Hemoglobin A1c 5.5 % (4.2-6.5) 08/23/17 12:07 Calcium 8.7 mg/dL (8.4-10.2) 08/30/17 05:10 Total Bilirubin 0.6 mg/dl (0.2-1.3) 08/28/17 05:45 AST 52 U/L (17-59) 08/28/17 05:45 ALT 58 U/L (21-72) 08/28/17 05:45 Alkaline Phosphatase 92 U/L (38-126) 08/28/17 05:45 Total Protein 7.5 G/DL (6.3-8.2) 08/28/17 05:45 Albumin 3.6 g/dL (3.5-5.0) 08/28/17 05:45 Globulin 3.9 gm/dL (2.2-3.9) 08/28/17 05:45 Albumin/Globulin Ratio 0.9 (1.0-2.1) L 08/28/17 05:45 Sqckx-3-Foftcfmye 7.5 Relative % 08/27/17 19:00 Omden-3-Srljthzft 13.3 Relative % 08/27/17 19:00 Beta Globulins 10.5 Relative % 08/27/17 19:00 Gamma Globulins 13.7 Relative % 08/27/17 19:00 Triglycerides 71 mg/DL (0-149) 08/24/17 05:20 Cholesterol 152 mg/dL (0-199) 08/24/17 05:20 LDL Cholesterol Direct 99 mg/dL (0-129) 08/24/17 05:20 HDL Cholesterol 31 MG/DL (30-70) 08/24/17 05:20 Venous Blood Potassium 4.4 mmol/L (3.6-5.2) 08/22/17 12:37 Urine Color Straw (YELLOW) 08/29/17 00:01 Urine Clarity Clear (Clear) 08/29/17 00:01 Urine pH 6.0 (5.0-8.0) 08/29/17 00:01 Ur Specific [place] < 1.005 (1.003-1.030) 08/29/17 00:01 Urine Protein Negative mg/dL (NEGATIVE) 08/29/17 00:01 Urine Glucose (UA) Neg mg/dL (Normal) 08/29/17 00:01 Urine Ketones Negative mg/dL (NEGATIVE) 08/29/17 00:01 Urine Blood Small (NEGATIVE) 08/29/17 00:01 Urine Nitrate Negative (NEGATIVE) 08/29/17 00:01 Urine Bilirubin Negative (NEGATIVE) 08/29/17 00:01 Urine Urobilinogen 0.2-1.0 mg/dL (0.2-1.0) 08/29/17 00:01 Ur Leukocyte Esterase Neg Manfred/uL (Negative) 08/29/17 00:01 Urine RBC (Auto) 3 /hpf (0-3) 08/29/17 00:01 Urine Microscopic WBC 1 /hpf (0-5) 08/29/17 00:01 Ur Squamous Epith Cells < 1 /hpf (0-5) 08/29/17 00:01 Urine Bacteria Rare (<OCC) 08/29/17 00:01 Urine Eosinophils Negative (NEGATIVE) 08/29/17 00:00 Urine Osmolality 215 mosm/kg (300-1000) L 08/30/17 13:00 Ur Random Sodium 65 meq/L 08/30/17 13:00 Ur Random Potassium 9.6 mmol/L 08/30/17 13:00 Urine Collection Time 24 HRS 08/28/17 19:00 Urine Total Volume 4800 mL 08/28/17 19:00 Urine Creatinine 0.44 g/L 08/27/17 19:00 Ur Creatinine 24 Hour 1776.0 mg/24hr (800-2800) 08/28/17 19:00 Ur Total Protein 24 Hr See note mg/24 h (<150) 08/27/17 19:00 Protein/Creat Ratio 24h 168 mg/g creat (</=84) H 08/27/17 19:00 Urine Total Protein 74 mg/L (50-250) 08/27/17 19:00 Urine Albumin (PEP) 54.9 Relative % 08/27/17 19:00 Ur Protein Fractions See note 08/27/17 19:00 Vancomycin Trough 30.7 ug/mL (5.0-10.0) H 08/26/17 06:30 Random Vancomycin 15.3 ug/mL 08/26/17 20:30 Hepatitis A IgM Ab Negative (NEGATIVE) 08/24/17 05:20 Hep Bs Antigen Negative (NEGATIVE) 08/24/17 05:20 Hep B Core IgM Ab Negative (NEGATIVE) 08/24/17 05:20 Hepatitis C Antibody Negative (NEGATIVE) 08/24/17 05:20 HIV 1&2 Ag/Ab, 4th Gen Nonreactive (Nonreactive) 08/23/17 16:41 HIV 1&2 Antibody Screen Negative (NEGATIVE) 08/23/17 16:02 - Hospital Course Hospital Course: 37 yr old M admitted for severe lip abscess whish s/p I&D by plastic surgery and IV antibiotic treatment. Patient developed MICHAEL and was seen by nephrology. Cleared for discharge with instructions to finish course of PO antibiotics and follow up closely with nephrology, PMD, plastic surgery and ID within 1 week. - Date & Time of H&P Date of H&P: 08/23/17 Time of H&P: 08:28 Discharge Exam - Head Exam Head Exam: NORMOCEPHALIC - Eye Exam Eye Exam: EOMI - ENT Exam ENT Exam: Mucous Membranes Moist Additional comments: lip swelling minimal, significantly improved, no discharge or malodor from I&D site - Neck Exam Neck exam: Full Rom - Respiratory Exam Respiratory Exam: Clear to PA & Lateral, NORMAL BREATHING PATTERN - Cardiovascular Exam Cardiovascular Exam: REGULAR RHYTHM, +S1, +S2 - GI/Abdominal Exam GI & Abdominal Exam: Normal Bowel Sounds, Soft (obese) - Extremities Exam Extremities exam: full ROM - Neurological Exam Neurological exam: Alert, CN II-XII Intact, Normal Gait, Oriented x3 - Psychiatric Exam Psychiatric exam: Normal Affect, Normal Mood - Skin Skin Exam: Dry, Normal Color, Warm Discharge Plan - Discharge Medications Prescriptions: Linezolid [Zyvox] 600 mg PO Q12 #5 tab - Follow Up Plan Condition: STABLE Disposition: HOME/ ROUTINE Instructions: Abscess (GEN) Additional Instructions: Complete all antibiotics. Follow up with Dr. Diaz on Saturday and with Dr. Rosado on Saturday of next week Referrals: Babatunde Diaz MD [Staff Provider] - Sherley Rosado MD [Staff Provider] - Neftaly Neville MD [Staff Provider] - Hakan Cristina MD [Medical Doctor] - Clinical Quality Measures - Date & Time of Discharge Summary Date of Discharge Summary: 08/30/17 Time of Discharge Summary: 15:24
--- NOTE | 2017-08-30 22:29 | PN ---
DATE: FOLLOWUP RENAL CONSULTATION LOCATION: Patient is located in room 662, bed 2. REQUESTED BY: Babatunde Diaz MD. REASON FOR FOLLOWUP: Acute renal failure, for further evaluation. HISTORY OF PRESENT ILLNESS: Mr. Huertas is a 37-year-old, very pleasant, obese male with no significant past medical history, who was admitted with lower lip abscess status post I and D, status post treatment with acyclovir and also status post treatment with IV vancomycin and Zosyn. Patient was found to have a normal creatinine on 08/22/2017 with 0.7 and patient was found to have with worsening serum creatinine on 08/25/2017 at 1.3 and on 08/26/2017, creatinine was 2.5; on 08/27/2017, creatinine went up to 2.9; and as of on 08/28/2017, creatinine went down slightly to 2.8; and as of 08/30/2017, creatinine is 2.6. The patient denies any complaints. Less pain in the lower lip and swelling is improving. No fever, no cough, no chest pain, no palpitation, no abdominal pain. No nausea, vomiting, or diarrhea. PHYSICAL EXAMINATION: VITAL SIGNS: As follows: Blood pressure 129/81, pulse 77, respirations 18, temperature 97.5, saturation 96%. Height 5 feet 6 inches and weight is 230 pounds, BMI of 37.1. GENERAL: Mr. Huertas is a 37-year-old obese male, well built, well nourished, not in distress. HEENT: Pupils are normal and reactive to light and accommodation. Conjunctivae pink. Sclerae are anicteric. Tongue is moist, less swelling of the lower lip with small crust. Trachea is midline. LUNGS: Symmetric on both sides. Bilateral breath sounds are present. Clear on auscultation. CARDIOVASCULAR SYSTEM: Dracut at the fifth intercostal space, half-inch medial to midclavicular line. S1 and S2 audible. No murmur. No gallop. ABDOMEN: Normal in appearance. Soft, tympanic. No guarding. No rigidity. No hepatosplenomegaly. CENTRAL NERVOUS SYSTEM: Patient is alert, awake, and oriented x3. Nonfocal neuro examination . Cranial nerves II through XII grossly intact. Sensory and motor system is within normal limits. EXTREMITIES: No cyanosis. No clubbing. No edema. CURRENT MEDICATIONS: Include as follows: Tramadol and Zyvox. LABORATORY DATA: His laboratory data as of 08/29/2017, WBC 14.5, hemoglobin 12.5, hematocrit 38.1, platelets 227. Sodium 141, potassium 4.8, chloride 108, CO2 of 24, BUN 21, creatinine 2.7, glucose 87, calcium 8.9. As of 08/30/2017, WBC 15.8, hemoglobin 11.9, hematocrit is 36.5, platelets 240. Sodium 140, potassium is 4, chloride 110, CO2 of 23, BUN 22, creatinine 2.7, glucose 97, calcium 8.7 and repeat creatinine is 2.6 as of 08/30/2017 at 11:45. Urine osmolality is 215, urine sodium is 65, urine potassium is 9.6, and urine eosinophils were negative as of 08/29/2017. ASSESSMENT AND PLAN: In summary, Mr. Huertas is 37-year-old, obese, male with no significant past medical history, who was admitted with lower lip abscess status post incision and drainage and also on IV antibiotic, acyclovir, vancomycin, and Zosyn, now on Zyvox, with increased BUN and creatinine as of 08/26/2017, creatinine went up to 2.9, now it is slowly coming down with creatinine 2.6 today. 1. Nonoliguric acute renal failure, most likely secondary to acute tubular necrosis, cannot rule out acute interstitial nephritis, even though eosinophils were negative. 2. Status post incision and drainage of lower lip abscess and cellulitis. Continue Zyvox as per ID recommendations. Patient is stable from the renal standpoint. Patient can be discharged home from the renal standpoint and I advised to repeat BMP on Saturday, follow up in the office on Saturday. We will follow with you. Thank you for allowing me to participate in your patient's care. Case discussed with nurse practitioner, Judy, in rounds. Sherley Rosado MD
--- NOTE | 2017-09-05 03:20 | CON ---
DATE: SURGEON: Hakan Cristina MD HISTORY OF PRESENT ILLNESS: This is a 37-year-old male with no significant past medical history, who presented to the emergency room with a 2-day history of right lower lip swelling, pain, drainage and an abscess. The ER staff consulted me for this facial abscess that was extremely large, thus I was called in as the plastic surgeon on-call. I came in to evaluate and treat the patient. On history, the patient states 2 days ago, he had like maybe a pimple of his lip which he may have picked or a cold sore and then it has gotten increasingly red and swollen and painful. PHYSICAL EXAMINATION: Right lower lip, the entire half of it was extremely red, swollen and warm and there was a little bit of drainage but there was a fluctuant tender area, and there was no intraoral communication or any other abscesses that I could see on the face. He was neurovascularly intact. I told him after a regional nerve block, I would do an incision and drainage, explore and debride some of the mucosa and then pack it and send wound cultures. The patient was to be admitted for IV antibiotics until the wound cultures come back and then transition to oral antibiotics. Risk and benefits were fully discussed including the fact that there was going to be a scar and the possibility of further procedures. I will now dictate a separate operative report. Hakan Cristina MD
--- NOTE | 2017-09-05 10:48 | OP ---
PROCEDURE DATE: 08/22/17 SURGEON: Hakan Cristina MD. PREOPERATIVE DIAGNOSES: Right lower lip abscess and cellulitis. POSTOPERATIVE DIAGNOSES: Right lower lip abscess and cellulitis. PROCEDURES PERFORMED: As follows: 1. Incision and drainage of a deep, complicated right lower lip abscess. 2. Debridement of lip mucosa. 3. Right mental nerve block. ANESTHESIA: Regional. INDICATION FOR PROCEDURE: As follows: Please refer to my separately dictated ER consultation for history and physical. DESCRIPTION OF PROCEDURE: As follows: A 1% lidocaine was used in a right mental nerve block for regional anesthesia. After allowing sufficient time for the anesthetic to take effect, the wound was pepped and draped in the usual clean and sterile manner. With a #15 blade, I made a small incision and then I used a clamp and I explored the wound, 10 mL of pus came out in the submucosal plane. Some of the mucosa was devitalized and nonviable and necrotic and had some swelling. I debrided this with scissor technique. After performing a full decompression and a complicated incision and drainage and debridement and exploration, I sent wound cultures and left a quarter-inch packing in the wound and then dry gauze. Patient tolerated the procedure well. Wound cultures were sent to the lab. Patient was continued and admitted for IV antibiotics and was going to be transitioned to oral antibiotics. I explained to the patient and the medical team to remove the packing in 2 to 3 days and to then initiate local wound care with soap and water, squeezing topical cream and they need to follow up with me in a few days. Warned the patient of a possibility of recurrence and need for further operations. Hakan Cristina MD
== END 2017-08-30 16:04 | disposition home or self-care (01) | DRG 137 ==
LOC: H.ER 11:45 → H.ERHOLD 12:44 → H.MEDSURG1 14:54 → OBSVTOIN 08-23 09:15 → H.MEDSURG1 08-23 14:07
PROVIDERS: ADMIT Internal Medicine; ATTEND Internal Medicine
PROC: 0C91XZZ Drainage of Lower Lip, External Approach (ICD-10-PCS; principal; 2017-08-23)
DX: K13.0 Diseases of lips (principal); N17.0 Acute kidney failure with tubular necrosis; K52.1 Toxic gastroenteritis and colitis; E66.9 Obesity, unspecified; R74.0 Nonspecific elevation of levels of transaminase and lactic acid dehydrogenase [LDH]; R79.89 Other specified abnormal findings of blood chemistry; Z68.37 Body mass index [BMI] 37.0-37.9, adult; T36.8X5A Adverse effect of other systemic antibiotics, initial encounter; B95.62 Methicillin resistant Staphylococcus aureus infection as the cause of diseases classified elsewhere